=== PATIENT | female | born 1955 | race Caucasian/White ===

== ENCOUNTER 2017-07-12 11:21 | Emergency (ER) | payer BC ==
[2017-07-12] MEDS ORDERED: DIPH/PERTUSS(ACELL)/TETANUS VAC/PF 0.5 ML SYR (>=10YO) IM ONE (11:48)
--- NOTE | 2017-07-12 11:49 | ER Document Report ---
ED Medical Screen (RME) - General Chief Complaint: Head Injury without LOC Stated Complaint: FALL/HEAD INJURY Time Seen by Provider: 07/12/17 11:47 Notes: fell at home, no loc TRAVEL OUTSIDE OF THE [place] IN LAST 30 DAYS: No - Related Data Allergies/Adverse Reactions: No Known Allergies Allergy (Verified 07/12/17 11:24) Past Medical History - Past Medical History Cardiac Medical History: Reports: Hx Hypertension Denies: Hx Coronary Artery Disease, Hx Heart Attack, Hx Pulmonary Embolism Pulmonary Medical History: Reports: Hx Bronchitis, Hx Pneumonia - hospitalized approx 7 years ago Denies: Hx Asthma, Hx COPD, Hx Respiratory Failure, Hx Sleep Apnea, Hx Tuberculosis Neurological Medical History: Denies: Hx Cerebrovascular Accident, Hx Seizures Renal/ Medical History: Denies: Hx End Stage Renal Disease, Hx Kidney Stones, Hx Peritoneal Dialysis Malignancy Medical History: Denies: Hx Leukemia, Hx Lung Cancer GI Medical History: Reports: Hx Gastroesophageal Reflux Disease - OTC Tums prn. 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 Denies: Hx Bowel Surgery, Hx Cholecystectomy, Hx Colostomy, Hx Coronary Artery Bypass Graft, Hx Gastric Bypass Surgery, Hx Herniorrhaphy, Hx Hysterectomy, Hx Mastectomy, Hx Pacemaker, Hx Tonsillectomy, Hx Tubal Ligation - Immunizations Hx Diphtheria, Pertussis, Tetanus Vaccination: Yes
--- NOTE | 2017-07-12 12:39 | RADIOLOGY REPORT (SQ) ---
EXAM DESCRIPTION: CT HEAD WITHOUT COMPLETED DATE/TIME: 07/12/2017 12:29 pm REASON FOR STUDY: fall/pain COMPARISON: None. TECHNIQUE: Axial images acquired through the brain without intravenous contrast. Images reviewed wi th bone, brain and subdural windows. Images stored on PACS. All CT scanners at this facility use dose modulation, iterative reconstruction, and/or weight based d osing when appropriate to reduce radiation dose to as low as reasonably achievable (ALARA). [facility]: Dose Right [facility]: CareDose [facility]: Dose Right [facility]: Teradose 4D [facility]: [employer] RADIATION DOSE: CT Rad equipment meets quality standard of care and radiation dose reduction techniq ues were employed. CTDIvol: 64.6 mGy. DLP: 1163 mGy-cm. mGy. LIMITATIONS: None. FINDINGS: VENTRICLES: Normal size and contour. CEREBRUM: No masses. No hemorrhage. No midline shift. No evidence for acute infarction. Normal gra y/white matter differentiation. No areas of low density in the white matter. CEREBELLUM: No masses. No hemorrhage. No alteration of density. No evidence for acute infarction. EXTRAAXIAL SPACES: No fluid collections. No masses. ORBITS AND GLOBE: No intra- or extraconal masses. Normal contour of globe without masses. CALVARIUM: No fracture. PARANASAL SINUSES: No fluid or mucosal thickening. SOFT TISSUES: Left frontal scalp hematoma. OTHER: No other significant finding. IMPRESSION: NORMAL BRAIN CT WITHOUT CONTRAST. EVIDENCE OF ACUTE STROKE: NO. COMMENT: Quality ID # [id number]: Final reports with documentation of one or more dose reduction techniques (e.g., Automated exposure control, adjustment of the mA and/or kV according to patient size, use of iterative reconstruction technique) TECHNICAL DOCUMENTATION: JOB ID: [id number] [employer]- All Rights Reserved
--- NOTE | 2017-07-12 12:42 | RADIOLOGY REPORT (SQ) ---
EXAM DESCRIPTION: CT FACIAL AREA WITHOUT COMPLETED DATE/TIME: 07/12/2017 12:28 pm REASON FOR STUDY: fall/pain COMPARISON: None. TECHNIQUE: Noncontrasted images through the facial bones and orbits windowed for bone and soft tissu e. Additional coronal and sagittal reconstructed images reviewed. All images stored on PACS. All CT scanners at this facility use dose modulation, iterative reconstruction, and/or weight based d osing when appropriate to reduce radiation dose to as low as reasonably achievable (ALARA). [facility]: Dose Right [facility]: CareDose [facility]: Dose Right [facility]: Teradose 4D [facility]: [employer] RADIATION DOSE: CT Rad equipment meets quality standard of care and radiation dose reduction techniq ues were employed. CTDIvol: 30.4 mGy. DLP: 547 mGy-cm. mGy. LIMITATIONS: None. FINDINGS: FACIAL BONES: No fracture or bone lesion. ORBITS: Intact. No fracture. Symmetric intact globes and retroorbital soft tissues. PARANASAL SINUSES: Clear. No significant mucosal thickening, mass or fluid. No nasal polyps. Maxill elsa sinus outlets are patent. SOFT TISSUES: Left frontal scalp hematoma. INFERIOR BRAIN: See separate report of the same date. OTHER: No other significant finding. IMPRESSION: No fracture. TECHNICAL DOCUMENTATION: JOB ID: [id number] Quality ID # [id number]: Final reports with documentation of one or more dose reduction techniques (e.g., Au tomated exposure control, adjustment of the mA and/or kV according to patient size, use of iterative reconstruction technique) 2010 [employer]- All Rights Reserved
--- NOTE | 2017-07-12 12:46 | RADIOLOGY REPORT (SQ) ---
EXAM DESCRIPTION: CT CERVICAL SPINE WITHOUT COMPLETED DATE/TIME: 07/12/2017 12:28 pm REASON FOR STUDY: fall/pain COMPARISON: None. TECHNIQUE: Axial images acquired through the cervical spine without intravenous contrast. Images re viewed with lung, soft tissue and bone windows. Reconstructed coronal and sagittal MPR images review ed. Images stored on PACS. All CT scanners at this facility use dose modulation, iterative reconstruction, and/or weight based d osing when appropriate to reduce radiation dose to as low as reasonably achievable (ALARA). [facility]: Dose Right [facility]: CareDose [facility]: Dose Right [facility]: Teradose 4D [facility]: Smart [employer] RADIATION DOSE: CT Rad equipment meets quality standard of care and radiation dose reduction techniq ues were employed. CTDIvol: 6.4 mGy. DLP: 128 mGy-cm. mGy. LIMITATIONS: None. FINDINGS: ALIGNMENT: Anatomic. MINERALIZATION: Normal. VERTEBRAL BODIES: No fractures or dislocation. There is a well corticated separate bony ossicle at t he level of marlon inferior aspect of the C4 vertebra which could be related to previous trauma or re present an ununited ossification center. DISCS: There is almost complete loss of the C5-C6 disc space heights with associated osteophytic anibal ing FACETS, LATERAL MASSES, POSTERIOR ELEMENTS: There is a fracture at the base of the C4 spinous process . HARDWARE: None in the spine. VISUALIZED RIBS: No fractures. LUNG APICES AND SOFT TISSUES: No significant or acute findings. OTHER: No other significant finding. IMPRESSION: There is a fracture at the base of the C4 spinous process. No other evidence for acute fracture is seen. Degenerative changes as noted above. Other findings as noted above TECHNICAL DOCUMENTATION: JOB ID: [id number] Quality ID # [id number]: Final reports with documentation of one or more dose reduction techniques (e.g., Au tomated exposure control, adjustment of the mA and/or kV according to patient size, use of iterative reconstruction technique) 2010 [employer]- All Rights Reserved
--- NOTE | 2017-07-12 13:19 | ER Document Report ---
HPI - HPI Pain Level: 4 Notes: Patient is a 61-year-old female with a history of osteoarthritis, hypertension, and tobacco abuse who presents to the ED complaining of facial pain and neck pain status post fall prior to arrival. Patient states that she was carrying her dog outside when she tripped and hit her face off of the cement. Patient states that she did not lose consciousness nor did she have any nausea/ vomiting. Patient states that aside from the pain she feels well. Vomiting patient has been drinking fluids without any difficulties. Patient was placed in a soft collar at triage. She denies any drug allergies or other significant past medical history. She is not on any blood thinners. Denies any fever, changes in vision/speech/mentation/hearing, URI, sore throat, chest pain, palpitations, syncope, cough, shortness of breath, wheeze, dyspnea, abdominal pain, nausea/vomiting/diarrhea, urinary retention, dysuria, hematuria, loss of control of bowel or bladder, numbness/tingling, saddle anesthesia, muscle paralysis/weakness, or rash. - ROS Systems Reviewed and Negative: Yes All other systems reviewed and negative - REPRODUCTIVE Reproductive: DENIES: : - DERM Skin Color: Normal Past Medical History - Social History Smoking Status: Current Every Day Smoker Frequency of alcohol use: Heavy Drug Abuse: None Family History: Reviewed & Not Pertinent Patient has suicidal ideation: No Patient has homicidal ideation: No - Past Medical History Cardiac Medical History: Reports: Hx Hypertension Denies: Hx Coronary Artery Disease, Hx Heart Attack, Hx Pulmonary Embolism Pulmonary Medical History: Reports: Hx Bronchitis, Hx Pneumonia - hospitalized approx 7 years ago Denies: Hx Asthma, Hx COPD, Hx Respiratory Failure, Hx Sleep Apnea, Hx Tuberculosis Neurological Medical History: Denies: Hx Cerebrovascular Accident, Hx Seizures Renal/ Medical History: Denies: Hx End Stage Renal Disease, Hx Kidney Stones, Hx Peritoneal Dialysis Malignancy Medical History: Denies: Hx Leukemia, Hx Lung Cancer GI Medical History: Reports: Hx Gastroesophageal Reflux Disease - OTC Tums prn. 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 Denies: Hx Bowel Surgery, Hx Cholecystectomy, Hx Colostomy, Hx Coronary Artery Bypass Graft, Hx Gastric Bypass Surgery, Hx Herniorrhaphy, Hx Hysterectomy, Hx Mastectomy, Hx Pacemaker, Hx Tonsillectomy, Hx Tubal Ligation - Immunizations Hx Diphtheria, Pertussis, Tetanus Vaccination: Yes Vertical Provider Document - CONSTITUTIONAL Agree With Documented VS: Yes Notes: PHYSICAL EXAMINATION: GENERAL: Well-appearing, well-nourished and in no acute distress. A&Ox4. Answers questions appropriately. HEAD: + swelling and ecchymosis w/o bogginess to the left forehead. + 0.5 linear, superficial, lac to the bridge of the nose. + abrasion left nostril base. + abrasion to the mid forehead. + [id number] laceration to the left forehead. + tenderness to the left forehead. No other cranial or facial tenderness. EYES: Pupils equal round and reactive to light, extraocular movements intact, sclera anicteric, conjunctiva are normal. No raccoon eyes/entrapment. No nystagmus. ENT: EAC clear b/l. TM's intact b/l without erythema, fluid, or perforation. Nares patent and without discharge. oropharynx clear without exudates. No tonsilar hypertrophy or erythema. Moist mucous membranes. No sinus tenderness. No hemotympanum/CSF discharge. NECK: LROM. + tenderness to the mid cervical midline spine. NEXUS positive due to midline tenderness. Chest: No flail chest. equal rise/fall. Non-tender LUNGS: Breath sounds clear to auscultation bilaterally and equal. No wheezes rales or rhonchi. HEART: Regular rate and rhythm without murmurs, rubs, gallops. ABDOMEN: Soft, nontender, nondistended abdomen. No guarding, no rebound. No masses appreciated. Normal bowel sounds present. No CVA tenderness bilaterally. No ecchymosis. Musculoskeletal: UE's b/l: FROM to passive/active. Strength 5+/5. No focal deficits noted. No bony tenderness of extremities. N/V intact distal. Rt LE: LROM at the hip only (prev CHELSEY), Strength 4+/5(not acute per patient, chronic since surgery for CHELSEY). N/V intact distal. Lt LE: FROM, Strength 5+/5. N/V intact distal. Back: FROM to passive/active. Strength 5+/5. No vertebral point tenderness, stepoffs, or deformities. No other bony tenderness or ecchymosis. SLR negative b/l. Extremities: No cyanosis, clubbing, or edema b/l. Peripheral pulses 2+. Capillary refill less than 2 seconds. NEUROLOGICAL: NIH 0. GCS 15. MMSE intact. Cranial nerves grossly intact. Normal speech, normal gait. Normal sensory, motor exams. Reflexes 2+ b/l. JEFF' s negative. Pronator drift negative. Heel/tinoco, finger/nose wnl. PSYCH: Normal mood, normal affect. SKIN: see above head exam. Warm, Dry, normal turgor, no rashes or lesions noted. - INFECTION CONTROL TRAVEL OUTSIDE OF THE [place] IN LAST 30 DAYS: No - RESPIRATORY O2 Sat by Pulse Oximetry: 96 Course - Re-evaluation Re-evalutation: 07/12/17 15:24 I called the transfer center, specialist still in surgery and will call me after. 07/12/17 16:[address] Santos, surgeon [facility], hard collar and f/u appropriate, see below. Patient is an afebrile, well-hydrated, 61-year-old female who presents to the ED with a C4 spinous base fracture status post fall, lacerations to the nose and forehead as well. Vitals are stable. PE is otherwise unremarkable for any focal neurological deficits, neurovascular compromise, obvious tendon/ligament rupture, open fracture. CT scan of the face and the head were unremarkable for any acute pathology. See CT scan of the neck. Patient has been in a soft collar since her arrival, we will switch her to a hard collar. The small laceration to the nose and the larger lac to the forehead were thoroughly cleansed and irrigated. Wound edges were approximated appropriately utilizing one 6-0 chromic simple interrupted suture to the nose and 3 simple interrupted sutures to the forehead, & one horizontal mattress suture. Patient tolerated procedure well without any complications. Wound dressing was placed and wound instructions reviewed. Tetanus was updated today. I did consult with a habilitation training specialist through [facility] who recommended hard collar and f/u in their office as she has no focal neuro deficits. I will send her home with a short course of oxycodone to use as needed. Conservative measures otherwise for symptoms. Recheck with your PCM in 1 week. Keep consult with the neurosurgeon. Return to the ED with any worsening/concerning symptoms otherwise as reviewed discharge. Patient is in agreement. - Vital Signs Vital signs: Temp Pulse Resp BP Pulse Ox 98.1 F 88 18 167/105 H 96 07/12/17 11:35 07/12/17 11:35 07/12/17 11:35 07/12/17 11:35 07/12/17 11:35 Procedures - Laceration/Wound Repair Face Time completed: 14:35 Wound length (cm): 0.5 Wound's Depth, Shape: Superficial, Linear Laceration pre-procedure: Sterile PPE donned, Sterile drapes applied, Other - chlorhexadine. Wound explored: Clean, No foreign body removed Irrigated w/ Saline (mLs): 30 Wound Debrided: Minimal Wound Repaired With: Sutures Suture Size/Type: 6:0, Other - chromic Number of Sutures: 1 Layer Closure?: No Post-procedure wound care: Sterile dressing applied Post-procedure NV exam normal: Yes Complications: No Head Time completed: 14:40 Wound length (cm): 2.5 Wound's Depth, Shape: Superficial, Irregular Laceration pre-procedure: Sterile PPE donned, Sterile drapes applied, Other - chlorhexadine Anesthetic type: 1% Lidocaine Volume Anesthetic (mLs): 6 Wound explored: Clean, No foreign body removed Irrigated w/ Saline (mLs): 60 Wound Debrided: Minimal Wound Repaired With: Sutures Suture Size/Type: 5:0, Nylon Number of Sutures: 5 Layer Closure?: No Post-procedure wound care: Sterile dressing applied Post-procedure NV exam normal: Yes Complications: No Discharge - Discharge Clinical Impression: Fracture of cervical spinous process Qualifiers: Encounter type: initial encounter Fracture type: closed Qualified Code(s): S12.9XXA - Fracture of neck, unspecified, initial encounter Laceration of nose Qualifiers: Encounter type: initial encounter Qualified Code(s): S01.21XA - Laceration without foreign body of nose, initial encounter Contusion of head Qualifiers: Encounter type: initial encounter Contusion of head detail: unspecified part of head Qualified Code(s): S00.93XA - Contusion of unspecified part of head, initial encounter Condition: Stable Disposition: HOME, SELF-CARE Instructions: Antibiotic Ointment Protection ([facility]), Laceration Care ([facility]), Soap Cleansing ([facility]), Tetanus Immunization Given ([facility]) Additional Instructions: Rest, Ice Use hard collar as directed Tylenol/ibuprofen as needed Keep the skin clean F/u with your PCP in 1 week for a recheck Keep/schedule consult with the habilitation training specialist Return to the ED with any worsening symptoms and/or development of fever, headache, changes in speech/vision/hearing/balance/mentation/behavior, chest pain, palpitations, syncope, shortness of breath, trouble breathing, abdominal pain, n/v/d, blood in stool/urine, loss of control of bowel/bladder, urinary retention, muscle weakness/paralysis, saddle anesthesia, numbness/tingling, or other worsening symptoms that are concerning to you. Do not shower or bathe for 24 hours. After 24 hours you may shower but no submersion of the wound under water. Keep the original dressing on the wound for 24 hours unless the drainage soaks through. Change the dressing daily thereafter and keep the knots of the suture material clean from any dried discharge. You may leave the wound open to the air once there is no more discharge. See your PCM in 2-3 days for a recheck. Monitor for any signs of worsening pain or redness, purulent drainage, streaks, and/or fever. Return to the ED if noticing any of the above symptoms or as needed. Take medications as directed. Your sutures will need to be removed in 5 days. Prescriptions: Oxycodone HCl/Acetaminophen [Oxycodone-Acetaminophen 5-325] 1 each PO BID #10 tablet Forms: Elevated Blood Pressure Referrals: MYRNA SANTOS MD [NO LOCAL MD] - Follow up in 3-5 days
[2017-07-12] MEDS ORDERED: OXYCODONE HCL IR 5 MG TABLET PO ONE (13:33)
[2017-07-12] MEDS ORDERED: LIDOCAINE 1% INJ (10 MG/ML) 10 ML MDV INJ ONE (14:49)
[2017-07-12] MEDS ORDERED: LIDOCAINE 1% INJ-PF (10 MG/ML) 30 ML SDV ONE (14:57)
[2017-07-12 17:04] VITALS: BP 157/80
== END 2017-07-12 17:02 | disposition home or self-care (01) ==
LOC: ER 11:21
PROC: 0HQ1XZZ Repair Face Skin, External Approach (ICD-10-PCS; principal; 2017-07-12)
DX: S12.9XXA Fracture of neck, unspecified, initial encounter (principal); S01.21XA Laceration without foreign body of nose, initial encounter; S00.93XA Contusion of unspecified part of head, initial encounter; W01.10XA Fall on same level from slipping, tripping and stumbling with subsequent striking against unspecified object, initial encounter; Y93.K1 Activity, walking an animal; F17.200 Nicotine dependence, unspecified, uncomplicated; I10 Essential (primary) hypertension; Z23 Encounter for immunization
CPT/HCPCS: 99284; 90471; 70450; 70486; 72125; 90715; 12013; L0120; L0172

== ENCOUNTER 2020-05-22 02:46 | Inpatient (IN) | payer BC ==
[2020-05-22] MEDS ORDERED: NORMAL SALINE 1000 ML 1,000 ML IV ONE ×2 (02:55→05:40)
--- NOTE | 2020-05-22 02:55 | ER Document Report ---
ED General - General Chief Complaint: Seizure Stated Complaint: UNRESPONSIVE Primary Care Provider: NATE CARDENAS PA-C [Primary Care Provider] - Follow up as needed TRAVEL OUTSIDE OF THE [place] IN LAST 30 DAYS: No - HPI Context: Chief Complaint: [Syncope and collapse] [This is a 64-year-old female presenting to the emergency room for evaluation after having an episode of syncope with collapse at home. Patient was laying in her recliner and went from lying to sitting to standing and had a syncopal episode. Patient has a history of seizure disorder but has not had any seizure activity for years now and has not been on any antiepileptic medication for some time as well. Patient denies fever, chills, chest pain, shortness of breath, history of PE, loss of sense of taste or loss of sense of smell, history of COVID-19 infection, known exposure to Covid positive persons or persons under investigation for COVID-19, urinary or fecal incontinence. Patient had one episode of nausea and vomiting in route to the hospital while being transported by EMS. Patient states she drinks a couple of times a week but seems evasive when asked how many drinks she has. Patient states "I drink when I feel like it." ] History obtained from [patient] Symptoms began:[Just prior to arrival] Onset: [Sudden] Timing: [Sudden while changing position] Quality: [Patient unable to characterize] Intensity: [0 out of 5 pain] Location: [Generalized] Radiation: [None] [The pain does not migrate to a new location.] Aggravating factors: [none] Relieving factors: [none] [Denies] SOB Positive nausea Positive vomiting [Denies] sweats [Denies] fever [Denies] cough [Denies] calf or leg swelling or pain - Related Data Allergies/Adverse Reactions: No Known Allergies Allergy (Verified 07/12/17 11:24) Past Medical History - General Information source: Patient, Emergency Med Personnel - Social History Smoking Status: Former Smoker Chew tobacco use (# tins/day): No Frequency of alcohol use: Occasional Drug Abuse: None Lives with: Family Family History: Reviewed & Not Pertinent Patient has suicidal ideation: No Patient has homicidal ideation: No - Past Medical History Cardiac Medical History: Reports: Hx Hypertension Denies: Hx Coronary Artery Disease, Hx Heart Attack, Hx Pulmonary Embolism Pulmonary Medical History: Reports: Hx Bronchitis, Hx Pneumonia - hospitalized approx 7 years ago Denies: Hx Asthma, Hx COPD, Hx Respiratory Failure, Hx Sleep Apnea, Hx Tuberculosis Neurological Medical History: Denies: Hx Cerebrovascular Accident, Hx Seizures Renal/ Medical History: Denies: Hx End Stage Renal Disease, Hx Kidney Stones, Hx Peritoneal Dialysis Malignancy Medical History: Denies: Hx Leukemia, Hx Lung Cancer GI Medical History: Reports: Hx Gastroesophageal Reflux Disease - OTC Tums prn. 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 Denies: Hx Bowel Surgery, Hx Cholecystectomy, Hx Colostomy, Hx Coronary Artery Bypass Graft, Hx Gastric Bypass Surgery, Hx Herniorrhaphy, Hx Hysterectomy, Hx Mastectomy, Hx Pacemaker, Hx Tonsillectomy, Hx Tubal Ligation - Immunizations Hx Diphtheria, Pertussis, Tetanus Vaccination: Yes Review of Systems - Review of Systems Notes: Review of systems as below unless otherwise stated in HPI. CONSTITUTIONAL [No] fever, [No] chills. EYES [No] eye pain. ENT [No] URI symptoms, [No] sore throat, [No] ear pain. CARDIOVASCULAR [No] chest pain, [No] palpitations, [No] edema. RESPIRATORY [No] Cough, [No] SOB, [No] wheezing. GASTROINTESTINAL [No] abdominal pain, [No] nausea, [No] Diarrhea, [No] Vomiting, [No] constipation, [No] melena, [No] rectal bleeding. GENITOURINARY [No] dysuria, [No] urinary frequency, [No] hematuria, [No] urinary urgency, [No] vaginal discharge, [No] vaginal bleeding. MUSCULOSKELETAL [No] Back pain. SKIN [No] Rash. NEUROLOGIC [No] Headache, [No] recent seizures, [No] paralysis,[No] parathesias. Positive syncope and collapse ENDOCRINE [No] polyuria. HEMO/LYMPATIC [No] easy brusing PSYCHIATRIC [No] depression. Physical Exam - Vital signs Vitals: Resp BP Pulse Ox 17 185/85 H 92 05/22/20 02:46 05/22/20 02:46 05/22/20 02:46 - Notes Notes: CONSTITUTIONAL [Vital signs reviewed, Patient appears comfortable, Alert and oriented X 3, Normal stature.] HEAD [Atraumatic, Normocephalic.] EYES [Eyes are normal to inspection, No discharge from eyes, Extraocular muscles intact, Sclera are normal, Conjunctiva are normal.] ENT [External ears normal to inspection, Nose examination normal, Mouth normal to inspection.] NECK [Normal ROM, No jugular venous distention, No meningeal signs, ] RESPIRATORY CHEST [Chest is nontender, Breath sounds normal, No respiratory distress.] CARDIOVASCULAR [RRR, No murmurs, Normal S1 S2, No rub, No gallop.] ABDOMEN [Abdomen is nontender, No pulsatile masses, No other masses, Bowel sounds normal, No distension, No peritoneal signs, No hernias.] BACK [There is no CVA Tenderness, There is no tenderness to palpation, Normal inspection.] UPPER EXTREMITY [Inspection normal, No cyanosis, No clubbing, No edema, LOWER EXTREMITY [Inspection normal, No cyanosis, No clubbing, No edema, No calf tenderness, NEURO [No focal motor deficits, No focal sensory deficits, Speech normal.] SKIN [Skin is warm, Skin is dry, Skin is normal color.] PSYCHIATRIC [Flat affect. ] Course - Re-evaluation Re-evalutation: 05/22/20 06:50 Results of ED MSE discussed with patient. Recommendation for admission to correct hyponatremia discussed with patient. Patient is agreeable to this. - Vital Signs Vital signs: Temp Pulse Resp BP Pulse Ox 97.5 F 79 22 H 153/79 H 95 05/22/20 02:47 05/22/20 05:44 05/22/20 05:35 05/22/20 05:44 05/22/20 05:35 - Laboratory Results Result Diagrams: 05/22/20 02:49 05/22/20 02:49 Laboratory Results Interpreted: 05/22/20 05/22/20 05/22/20 02:49 02:49 02:52 MCV 98 H MCH 34.3 H Sodium 122.5 L Chloride 84 L BUN 5 L Creatinine 0.40 L Glucose 171 H POC Glucose 154 H AST 42 H Urine Glucose (UA) Urine Ketones Ur Leukocyte Esterase 05/22/20 04:56 MCV MCH Sodium Chloride BUN Creatinine Glucose POC Glucose AST Urine Glucose (UA) 50 H Urine Ketones 20 H Ur Leukocyte Esterase SMALL H Critical Laboratory Results Reviewed: Yes Attending or Supervising Physician who Reviewed Labs: MICHAEL ANTON IV - Patient sodium of 122.5 is markedly lower than prior sodium levels seen on review of the patient's medical record - Radiology Results Critical Radiology Results Reviewed: No Critical Results Attending or Supervising Physician who Reviewed Radiology: MICHAEL ANTON IV - EKG Interpretation by Me Additional EKG results interpreted by me: 05/22/20 03:01 EKG obtained on 05/22/2020 at 0250 hrs. was interpreted by this MD. Findings:s inus rhythm, rate 93, normal axis, P waves preceding QRS complexes complexes appear narrow, QTC is 453, first-degree AV block is present, QTC is 453, when compared to prior EKG from 08/15/2015 other than first-degree AV block the overall gross morphology of the 2 EKGs appears very similar. Impression: Sinus rhythm with first-degree AV block and nonspecific ST segments - Consults Dr. Curtis Time consulted: 06:22 - Dr. Curtis agreed to admit pt Reason for consultation: 05/22/20 06:22 symptomatic hyponatremia Discharge - Discharge Clinical Impression: Hyponatremia Syncope Qualifiers: Syncope type: unspecified Qualified Code(s): R55 - Syncope and collapse Condition: Stable Disposition: ADMITTED OBSERVATION Admitting Provider: Kirsten (Hospitalist) Unit Admitted: IMCU Referrals: NATE CARDENAS PA-C [Primary Care Provider] - Follow up as needed
[2020-05-22 03:32] LABS: ABSOLUTE BASOPHILS # (AUTO) 0.1 10^3/uL (0.0-0.2); ABSOLUTE EOSINOPHILS # (AUTO) 0.1 10^3/uL (0.0-0.6); ABSOLUTE LYMPHOCYTES (AUTO) 1.4 10^3/uL (0.5-4.7); ABSOLUTE MONOCYTES (AUTO) 0.6 10^3/uL (0.1-1.4); ABSOLUTE NEUT (AUTO) 4.9 10^3/uL (1.7-8.2); BASOPHILS % (AUTO) 1.1 % (0-2); EOSINOPHILS % (AUTO) 1.4 % (0-6); HEMATOCRIT 43.8 % (36.0-47.0); HEMOGLOBIN 15.3 g/dL (12.0-15.5); LYMPHOCYTES % (AUTO) 20.1 % (13-45); MEAN CORPUSCULAR HEMOGLOBIN 34.3 pg (27.0-33.4); MEAN CORPUSCULAR HGB CONC 34.9 g/dL (32.0-36.0); MEAN CORPUSCULAR VOLUME 98 fl (80-97); PLATELET COUNT 346 10^3/uL (150-450); RED BLOOD COUNT 4.45 10^6/uL (3.72-5.28); RED CELL DISTRIBUTION WIDTH 12.8 % (11.5-14.0); SEGMENTED NEUTROPHILS % (AUTO) 68.4 % (42-78); TOTAL CELLS COUNTED % (AUTO) 100 %; WHITE BLOOD COUNT 7.2 10^3/uL (4.0-10.5)
[2020-05-22 03:36] LABS: ALBUMIN 4.6 g/dL (3.5-5.0); ALKALINE PHOSPHATASE 109 U/L (38-126); ANION GAP 11 (5-19); ASPARTATE AMINO TRANSFERASE 42 U/L (14-36); BILIRUBIN,DIRECT 0.1 mg/dL (0.0-0.4); BLOOD UREA NITROGEN 5 mg/dL (7-20); CALCIUM 9.8 mg/dL (8.4-10.2); CARBON DIOXIDE 28 mmol/L (22-30); CHLORIDE 84 mmol/L (98-107); GLUCOSE 171 mg/dL (75-110); POTASSIUM 4.8 mmol/L (3.6-5.0); TOTAL PROTEIN 7.7 g/dL (6.3-8.2)
[2020-05-22 03:40] LABS: ALCOHOL < 10 mg/dL (NONE DETECTED)
[2020-05-22 05:31] LABS: APPEARANCE,URINE CLEAR; BILIRUBIN,URINE NEGATIVE (NEGATIVE); COLOR,URINE YELLOW; GLUCOSE, URINE 50 mg/dL (NEGATIVE); KETONES,URINE 20 mg/dL (NEGATIVE); LEUKOCYTE ESTERASE,URINE SMALL (NEGATIVE); NITRITE,URINE NEGATIVE (NEGATIVE); PROTEIN,URINE NEGATIVE (NEGATIVE); URINE SPECIFIC GRAVITY 1.011; UROBILINOGEN,URINE NEGATIVE mg/dL (<2.0)
--- NOTE | 2020-05-22 05:39 | RADIOLOGY REPORT (SQ) ---
EXAM DESCRIPTION: CT HEAD WITHOUT IV CONTRAST COMPLETED DATE/TME: 05/22/2020 04:51 CLINICAL HISTORY: 64 years, Female, Status post fall COMPARISON: 07/12/2017 CT TECHNIQUE: 217 Images stored on PACS. All CT scanners at this facility use dose modulation, iterative reconstruction, and/or weight based dosing when appropriate to reduce radiation dose to as low as reasonably achievable (ALARA). [facility]: Dose Right [facility]: CareDose [facility]: Dose Right [facility]: Teradose 4D [facility]: [employer] LIMITATIONS: None. FINDINGS: The globes are intact. The paranasal sinuses and mastoid air cells are well aerated. No displaced or depressed skull fracture. No acute intracranial hemorrhage. CT is limited for evaluation of acute infarct. No CT evidence for large or territorial acute infarct. No mass. No midline shift IMPRESSION: No acute intracranial abnormality TECHNICAL DOCUMENTATION: Quality ID # 436: Final reports with documentation of one or more dose reduction techniques (e.g., Automated exposure control, adjustment of the mA and/or kV according to patient size, use of iterative reconstruction technique) copyright 2011 [employer]- All Rights Reserved
[2020-05-22 05:47] LABS: URINE AMPHETAMINES SCREEN NEGATIVE; URINE BARBITURATES SCREEN NEGATIVE; URINE BENZODIAZEPINES SCREEN NEGATIVE; URINE COCAINE SCREEN NEGATIVE; URINE MARIJUANA (THC) SCREEN NEGATIVE; URINE METHADONE SCREEN NEGATIVE; URINE PHENCYCLIDINE SCREEN NEGATIVE
--- NOTE | 2020-05-22 05:48 | RADIOLOGY REPORT (SQ) ---
EXAM DESCRIPTION: XR CHEST 1 VIEW COMPLETED DATE/TME: 05/22/2020 04:54 CLINICAL HISTORY: 64 years, Female, Status post fall COMPARISON: 08/15/2015 chest NUMBER OF VIEWS: 1 TECHNIQUE: Portable chest LIMITATIONS: None. FINDINGS: Heart size is normal. Osteopenia. COPD. Atheromatous change thoracic aorta. No pneumothorax. Lungs are clear IMPRESSION: COPD. Lungs are clear copyright 2011 [facility]- All Rights Reserved
--- NOTE | 2020-05-22 05:49 | RADIOLOGY REPORT (SQ) ---
EXAM: CT cervical spine without intravenous contrast CLINICAL DATA: 64 years Female Status post fall TECHNICAL DATA: Multiple high-resolution thin axial CT images were performed through the cervical spine followed by sagittal and coronal reconstructed images. The CT study is performed according to ALARA (as low as reasonably achievable) or ALARA/IMAGE GENTLY, with automatic adjustment of mA and/or kV according to patient size. Performed on: 05/22/2020 at 4:43 AM COMPARISONS: CT cervical spine performed on 07/12/2017. FINDINGS: The cervical vertebrae are normal in height. There is normal alignment of the vertebrae. There is moderate stable disc space narrowing C5-C6. Bone mineralization is normal. There is mild degenerative spurring of the cervical spine at C4, C5 and C6. The previously identified C4 fractures are healed. The atlanto-axial articulation is preserved and the odontoid process is intact. There is normal alignment of the facet joints on the parasagittal images. There are degenerative changes of the facet joints. There is no evidence of acute fracture or subluxation. There is no significant canal stenosis. There is bilateral C5-C6 neural foraminal stenosis secondary to degenerative disc disease and degenerative joint disease. The paravertebral and paraspinal soft tissues are unremarkable. The lung apices reveal centrilobular emphysematous changes with chronic pleural parenchymal scarring in the left lung apex. IMPRESSION: 1. No evidence of acute osseous injury involving the cervical spine. 2. Degenerative changes of the cervical spine at C5-C6 as described above, similar when compared to the prior study. 3. Old healed fracture of the C4 vertebra and spinous process. 4. Centrilobular emphysematous changes in the lung apices and chronic pleural parenchymal scarring in the left lung apex
[2020-05-22] MEDS ORDERED: ACETAMINOPHEN 325 MG TABLET PO PRN (07:04)
[2020-05-22] MEDS ORDERED: ONDANSETRON HCL INJ/PF 4 MG/2 ML SDV IV PRN (07:04)
[2020-05-22] MEDS ORDERED: IPRATROPIUM/ALBUTEROL 0.5-2.5 MG/3 ML AMPUL NEB PRN (07:04)
[2020-05-22] MEDS ORDERED: PROMETHAZINE HCL INJ 25 MG/1 ML VIAL IV PRN (07:04)
--- NOTE | 2020-05-22 07:04 | PDOC H&P ---
History of Present Illness Admission Date/PCP: NATE CARDENAS PA-C History of Present Illness: KAIA APPLE is a 64 year old female past medical history of untreated hypertension, EtOH abuse, brought to ED after witnessed tonic-clonic seizure by family. Patient son who is present at the room stating that patient was sleeping and when she woke up and was trying to get off the bed she suddenly collapsed and had tonic-clonic seizure which lasted about 2 to 3 minutes witnessed by his daughter who was in the room, after seizure patient was was unresponsive about 20 to 30 minutes, EMS and initial impression was that patient may have had a stroke, after EMS arrival patient came back to but was noted to be confused till arrival to the hospital. On my encounter patient is resting in bed comfortably awake and alert x3, stating that she does not recall anything that had happened prior to coming to the hospital, stating that she does not have any history of seizure disorder how ever 3 years ago she had one episode of seizure for which she came to [facility] and was discharged home without any medications, she is also saying that she has history of hypertension but does not take any medication. As per son who is present in the room patient is a heavy drinker and drinks multiple bottles of beer daily along with wine, as per son patient does not eat or drink much except for excessive drinking. Patient is complaining of mild chest congestion otherwise denies any headache, vision changes, weakness, numbness, tingling, headache, nausea, fever, chills, diarrhea, constipation or any urinary symptoms. Past Medical History Cardiac Medical History: Reports: Hypertension Denies: Coronary Artery Disease, Myocardial Infarction, Pulmonary Embolism Pulmonary Medical History: Reports: Bronchitis, Pneumonia - hospitalized approx 7 years ago Denies: Asthma, Chronic Obstructive Pulmonary Disease (COPD), Respiratory Failure, Sleep Apnea, Tuberculosis Neurological Medical History: Denies: Seizures Renal/ Medical History: Denies: End Stage Renal Disease Malignancy Medical History: Denies: Leukemia, Lung Cancer GI Medical History: Reports: Gastroesophageal Reflux Disease - OTC Tums prn Denies: Crohn's Disease, Hiatal Hernia Musculoskeltal Medical History: Reports: Arthritis Denies: Fibromyalgia Psychiatric Medical History: Denies: Bipolar Disorder, Depression, Post Traumatic Stress Disorder Hematology: Reports: Anemia - with only Denies: Hemophilia, Sickle Cell Disease Infectious Medical History: Denies: HIV Past Surgical History Past Surgical History: Reports: Appendectomy - at age 46 years old, Section - 1981, Orthopedic Surgery - Right hip fx nailed on 01-19-11, 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 Denies: Amputation, Cholecystectomy, Colostomy, Coronary Artery Bypass Graft, Gastric Bypass Surgery, Herniorrhaphy, Hysterectomy, Mastectomy, Pacemaker, Tonsillectomy, Tubal Ligation Social History Lives with: Family Smoking Status: Former Smoker Electronic Cigarette use?: No Hx Recreational Drug Use: No Hx Prescription Drug Abuse: No Family History Family History: Reviewed & Not Pertinent Parental Family History Reviewed: Yes Children Family History Reviewed: Yes Sibling(s) Family History Reviewed.: Yes Medication/Allergy Home Medications: Aspirin [Ecotrin 81 mg EC Tablet] 81 mg PO DAILY 08/16/11 Baclofen [Baclofen 10 mg Tablet] 10 mg PO TID PRN 03/13/14 Gabapentin [Neurontin 400 mg Capsule] 400 mg PO QID 03/13/14 Meloxicam [Mobic 7.5 Mg Tablet] 7.5 mg PO DAILY PRN 03/13/14 Phenytoin Sodium Extended [Dilantin 100 mg Capsule.er] 300 mg PO QHS #30 capsule 08/16/15 Oxycodone HCl/Acetaminophen [Oxycodone-Acetaminophen 5-325] 1 each PO BID #10 tablet 07/12/17 Allergies/Adverse Reactions: No Known Allergies Allergy (Verified 07/12/17 11:24) Review of Systems Review of Systems: as per hpi Physical Exam Vital Signs: Temp Pulse Resp BP Pulse Ox 97.5 F 79 22 H 153/79 H 95 05/22/20 02:47 05/22/20 05:44 05/22/20 05:35 05/22/20 05:44 05/22/20 05:35 Intake & Output 05/20/20 05/21/20 05/22/20 06:59 06:59 06:59 Intake Total 1000 Balance 1000 Weight 49.3 kg General appearance: PRESENT: no acute distress, well-developed, well-nourished Head exam: PRESENT: atraumatic, normocephalic Respiratory exam: PRESENT: clear to auscultation nisa. ABSENT: rales, rhonchi, wheezes Cardiovascular exam: PRESENT: RRR. ABSENT: diastolic murmur, rubs, systolic murmur GI/Abdominal exam: PRESENT: normal bowel sounds, soft. ABSENT: distended, guarding, mass, organolmegaly, rebound, tenderness Extremities exam: PRESENT: full ROM. ABSENT: calf tenderness, clubbing, pedal edema Neurological exam: PRESENT: alert, awake, oriented to person, oriented to place, oriented to time, oriented to situation, CN II-XII grossly intact. ABSENT: motor sensory deficit Results Laboratory Results: 05/22/20 02:49 05/22/20 02:49 05/22/20 05/22/20 05/22/20 02:49 02:49 04:56 WBC 7.2 RBC 4.45 Hgb 15.3 Hct 43.8 MCV 98 H MCH 34.3 H MCHC 34.9 RDW 12.8 Plt Count 346 Seg Neutrophils % 68.4 Sodium 122.5 L Potassium 4.8 Chloride 84 L Carbon Dioxide 28 Anion Gap 11 BUN 5 L Creatinine 0.40 L Est GFR ( Amer) > 60 Glucose 171 H Calcium 9.8 Total Bilirubin 1.0 AST 42 H Alkaline Phosphatase 109 Total Protein 7.7 Albumin 4.6 Urine Color YELLOW Urine Appearance CLEAR Urine pH 7.0 Ur Specific Salol 1.011 Urine Protein NEGATIVE Urine Glucose (UA) 50 H Urine Ketones 20 H Urine Blood NEGATIVE Urine Nitrite NEGATIVE Ur Leukocyte Esterase SMALL H Urine WBC (Auto) 8 Urine RBC (Auto) 0 05/22/20 02:49 Troponin I 0.048 Impressions: Cervical Spine CT 05/22/20 02:57 IMPRESSION: 1. No evidence of acute osseous injury involving the cervical spine. 2. Degenerative changes of the cervical spine at C5-C6 as described above, similar when compared to the prior study. 3. Old healed fracture of the C4 vertebra and spinous process. 4. Centrilobular emphysematous changes in the lung apices and chronic pleural parenchymal scarring in the left lung apex Chest X-Ray 05/22/20 02:57 IMPRESSION: COPD. Lungs are clear copyright 2010 [employer] All Rights Reserved Head CT 05/22/20 02:57 IMPRESSION: No acute intracranial abnormality TECHNICAL DOCUMENTATION: Quality ID # 436: Final reports with documentation of one or more dose reduction techniques (e.g., Automated exposure control, adjustment of the mA and/or kV according to patient size, use of iterative reconstruction technique) copyright 2010 [employer] All Rights Reserved Assessment and Plan - Diagnosis (1) Seizure Is this a current diagnosis for this admission?: Yes Plan: Likely due to EtOH induced hyponatremia. Patient denies any history of seizure however states that she had one episode of seizure 3 years ago and she is not taking any antiseizure medications. Patient has history of heavy alcohol abuse and drinks multiple beer bottles with wine daily. CT head negative for any acute abnormalities. Chest x-ray negative for any acute abnormalities. Admit to IMCU, fall, seizure and aspiration precautions, Keppra 1000 mg p.o. twice daily, treat underlying hyponatremia. (2) Hyponatremia Is this a current diagnosis for this admission?: Yes Plan: Likely beer proteinemia. History of excessive EtOH abuse. Admit to IMCU, fluid restriction, BMP every 6 hours. If patient does not self-correct or hyponatremia worsened consider hypertonic saline. (3) Elevated troponin Is this a current diagnosis for this admission?: Yes Plan: Denies any anginal symptoms or any history of CAD. Mildly elevated troponin with no acute EKG changes. History of unrelated treated hypertension. Admit to telemetry, trend troponins, antiplatelets, statins, 2D echo. Consult cardiology if indicated. (4) Hypertension Qualifiers: Hypertension type: essential hypertension Qualified Code(s): I10 - Essential (primary) hypertension Is this a current diagnosis for this admission?: Yes Plan: History of untreated hypertension. Start on beta-blockers and calcium channel blockers. Avoid diuretics to prevent electrolyte abnormalities. (5) ETOH abuse Is this a current diagnosis for this admission?: Yes Plan: Patient has history of heavy alcohol abuse and drinks multiple beer bottles with wine daily. Patient has had a seizure episode 3 years ago which may have been also due to EtOH abuse. Admit to IMCU, seizure, fall and aspiration precautions, DT protocol. - Time Anticipated Discharge Disposition: Home with Home Health Anticipated Discharge Timeframe: within 36 hours
[2020-05-22] MEDS ORDERED: LORAZEPAM INJ 2 MG/1 ML VIAL IV PRN (07:09)
[2020-05-22] MEDS ORDERED: DIAZEPAM INJ 10 MG/2 ML DISP.SYRIN IV PRN (07:09)
[2020-05-22] MEDS ORDERED: NORMAL SALINE 1000 ML 1,000 ML with POTASSIUM CHLORIDE 20 MEQ, MAGNESIUM SULFATE 8 MEQ,... IV ONE ×5 (07:09)
[2020-05-22] MEDS ORDERED: ASPIRIN 325 MG TABLET PO ONE (07:45)
--- NOTE | 2020-05-22 09:52 | Progress Note ---
Provider Note Provider Note: 09:41: I was contacted by ED nurse regarding climbing troponin value 0.048 -> 0.108. Repeat EKG was ordered. Dr. Rios, cardiology was consulted. Discussed case with Dr. Rios, initial EKG notable for T wave changes, the second EKG actually improved. Patient presented without ischemic symptoms including chest pain, palpitations, numbness or tingling, neck or jaw pain, shoulder or arm pain, shortness of breath, or diaphoresis. Continues to deny ischemic symptoms. She did note single episode of nausea and vomiting last night, denies nausea or vomiting since. Additionally notes that she feels as though she has some mucus in her chest this is relatively normal for her and has been going on for quite some time. Her only complaint at this time is that she wants to sleep but is having difficulty sleeping and feels "a little anxious." Again denies history of coronary artery disease, does note history of hypertension not on home medications. Additionally confirms history of chronic alcohol use, though denies history of alcohol withdrawals in the past. On physical exam patient is sitting upright in bed. She is in no acute distress. She is alert and oriented x4. O2 sats within normal limits on room air. Blood pressure 130s over 90s. Heart rate 80s. Regular rate rhythm without murmur or gallops. Lungs clear to auscultation bilaterally without wheezes. Skin warm, dry, without rash. Patient does appear anxious. Aspirin and beta-giuseppe therapy have already been initiated. Will hold anticoagulation prophylaxis, as per cardiology recommendations. 2D echo has been ordered and is pending. In the event that there is decreased ejection fraction or wall abnormalities on echo, will likely have to transfer patient. Repeat troponin is pending. She is on telemetry. Patient provided strict instructions to tell nursing staff if she experiences any ischemic symptoms. Plan to follow patient closely.
--- NOTE | 2020-05-22 09:52 | EKG REPORT ---
SEVERITY:- NORMAL ECG - SINUS RHYTHM : Confirmed by: Jose Ramon Jones MD 22-May-2020 09:51:24
--- NOTE | 2020-05-22 09:54 | EKG REPORT ---
SEVERITY:- ABNORMAL ECG - SINUS RHYTHM FIRST DEGREE AV BLOCK NONSPECIFIC ANTEROLATERAL ST-T CHANGES : Confirmed by: Jose Ramon Jones MD 22-May-2020 09:53:25
[2020-05-22] MEDS ORDERED: LISINOPRIL 10 MG TABLET PO SCH (10:00)
[2020-05-22] MEDS: FAMOTIDINE 20 MG TABLET PO SCH ×2 (10:10→21:37)
[2020-05-22] MEDS: LEVETIRACETAM 1000 MG/NACL-ISO 1,000 MG/100 ML RTUPB IV SCH ×2 (10:10→22:47)
[2020-05-22] MEDS: CARVEDILOL 12.5 MG TABLET PO SCH ×2 (10:10→21:37)
[2020-05-22] MEDS: DOCUSATE SODIUM 100 MG/10 ML UDC PO SCH (10:10)
[2020-05-22] MEDS ORDERED: HEPARIN SOD (PORCINE) 5,000 UNIT/ML 1 ML VIAL SUBCUT SCH (14:00)
[2020-05-22 14:22] LABS: ANION GAP 5 (5-19); BLOOD UREA NITROGEN 5 mg/dL (7-20); CALCIUM 9.1 mg/dL (8.4-10.2); CARBON DIOXIDE 28 mmol/L (22-30); CHLORIDE 93 mmol/L (98-107); GLUCOSE 127 mg/dL (75-110); POTASSIUM 4.5 mmol/L (3.6-5.0)
[2020-05-22] MEDS: HEPARIN SOD (PORCINE) 5,000 UNIT/ML 1 ML VIAL SUBCUT SCH ×2 (17:03→21:38)
--- NOTE | 2020-05-22 18:02 | XCELERA REPORT ---
[address] [address] Transthoracic Echocardiogram Report Name: KAIA APPLE Age: 64 yrs Gender: Female : 1955 Patient Status: Inpatient Patient Location: [address] [place] [address] Study Date: 05/22/2020 04:25 PM Height: 67 in Weight: 108 lb BSA: 1.6 m2 Procedure: A complete two-dimensional transthoracic echocardiogram was performed (2D, M-mode, spectral and color flow Doppler). The study was technically adequate with some images being suboptimal in quality. Reason For Study: elevated trop Ordering Physician: KEYA HOFFMAN Performed By: Madison Ochoa Interpretation Summary There is mild concentric left ventricular hypertrophy. Left ventricular systolic function is normal. The Ejection Fraction estimate is 65-70%. Doppler measurements suggest impaired left ventricular relaxation, which is associated with grade I/IV or mild diastolic dysfunction. No regional wall motion abnormalities noted. Mild TR. Pulmonic valve was not well visualized. Mild pulmonary hypertension with pressures between 45 and 50 mmHg. Trace anterior pericardial effusion. No prior studies for comparison. MMode/2D Measurements & Calculations RVDd: 2.3 cm LVIDd: 3.6 cm FS: 34.0 % Ao root diam: 2.8 cm IVSd: 1.2 cm LVIDs: 2.4 cm EDV(Teich): 54.8 ml Ao root area: 6.3 cm2 LVPWd: 1.00 cm ESV(Teich): 19.8 ml EF(Teich): 63.9 % Doppler Measurements & Calculations MV E max flor: MV dec slope: Ao V2 max: LV V1 max P.4 cm/sec 374.7 cm/sec2 122.9 cm/sec 3.2 mmHg MV A max flor: MV dec time: 0.23 secAo max PG: LV V1 mean P.0 cm/sec 6.0 mmHg 1.6 mmHg MV E/A: 0.96 Ao V2 mean: LV V1 max: 95.4 cm/sec 89.3 cm/sec Ao mean PG: LV V1 mean: 3.9 mmHg 61.5 cm/sec Ao V2 VTI: 35.6 cm LV V1 VTI: 20.1 cm PA V2 max: TR max flor: 80.2 cm/sec 317.5 cm/sec PA max P.6 mmHg TR max P.3 mmHg Left Ventricle There is mild concentric left ventricular hypertrophy. Left ventricular systolic function is normal. The Ejection Fraction estimate is 65-70%. Doppler measurements suggest impaired left ventricular relaxation, which is associated with grade I/IV or mild diastolic dysfunction. No regional wall motion abnormalities noted. Right Ventricle The right ventricle is normal in size, thickness and function. The right ventricular systolic function is normal. Atria The right atrium is normal. The left atrial size is normal. There is no Doppler evidence for an interatrial shunt. Mitral Valve The mitral valve leaflets are sclerotic, but show no functional abnormalities. There is no mitral regurgitation noted. Aortic Valve The aortic valve is sclerotic, but shows no functional abnormality. No aortic regurgitation is present. Tricuspid Valve The tricuspid valve is not well visualized secondary to technical limitations. There is a mild amount of tricuspid regurgitation. There is mild pulmonary hypertension by echo. Right ventricular systolic pressure is estimated to be elevated at 40-50mmHg. Pulmonic Valve The pulmonic valve is not well visualized. Great Vessels The inferior vena cava appeared normal and decreased > 50% with respiration (RAP 5-10 mmHg). Effusions Trace anterior pericardial effusion. : KEYA HOFFMAN Antonio
[2020-05-22 21:26] LABS: BLOOD UREA NITROGEN 7 mg/dL (7-20); CALCIUM 8.8 mg/dL (8.4-10.2); CARBON DIOXIDE 27 mmol/L (22-30); GLUCOSE 98 mg/dL (75-110); POTASSIUM 4.4 mmol/L (3.6-5.0)
[2020-05-22 21:32] LABS: CHLORIDE 98 mmol/L (98-107)
[2020-05-22 21:37] LABS: ANION GAP 3 (5-19)
[2020-05-22] MEDS: ATORVASTATIN CALCIUM 40 MG TABLET PO SCH (21:37)
[2020-05-23 01:32] LABS: BLOOD UREA NITROGEN 5 mg/dL (7-20); CALCIUM 8.7 mg/dL (8.4-10.2); CARBON DIOXIDE 27 mmol/L (22-30); CHLORIDE 102 mmol/L (98-107); GLUCOSE 88 mg/dL (75-110); POTASSIUM 4.1 mmol/L (3.6-5.0)
[2020-05-23 01:39] LABS: ANION GAP 3 (5-19)
[2020-05-23] MEDS: HEPARIN SOD (PORCINE) 5,000 UNIT/ML 1 ML VIAL SUBCUT SCH ×3 (06:01→21:29)
[2020-05-23 07:29] LABS: ABSOLUTE BASOPHILS # (AUTO) 0.1 10^3/uL (0.0-0.2); ABSOLUTE EOSINOPHILS # (AUTO) 0.1 10^3/uL (0.0-0.6); ABSOLUTE LYMPHOCYTES (AUTO) 1.2 10^3/uL (0.5-4.7); ABSOLUTE MONOCYTES (AUTO) 0.5 10^3/uL (0.1-1.4); ABSOLUTE NEUT (AUTO) 3.2 10^3/uL (1.7-8.2); BASOPHILS % (AUTO) 1.3 % (0-2); EOSINOPHILS % (AUTO) 1.4 % (0-6); HEMATOCRIT 35.1 % (36.0-47.0); LYMPHOCYTES % (AUTO) 24.6 % (13-45); MEAN CORPUSCULAR HEMOGLOBIN 33.5 pg (27.0-33.4); MEAN CORPUSCULAR HGB CONC 34.2 g/dL (32.0-36.0); MEAN CORPUSCULAR VOLUME 98 fl (80-97); MONOCYTES % (AUTO) 10.6 % (3-13); PLATELET COUNT 227 10^3/uL (150-450); RED BLOOD COUNT 3.58 10^6/uL (3.72-5.28); RED CELL DISTRIBUTION WIDTH 12.9 % (11.5-14.0); SEGMENTED NEUTROPHILS % (AUTO) 62.1 % (42-78); TOTAL CELLS COUNTED % (AUTO) 100 %; WHITE BLOOD COUNT 5.1 10^3/uL (4.0-10.5)
[2020-05-23 07:40] LABS: ANION GAP 6 (5-19); BLOOD UREA NITROGEN 6 mg/dL (7-20); CARBON DIOXIDE 27 mmol/L (22-30); CHLORIDE 99 mmol/L (98-107); GLUCOSE 89 mg/dL (75-110); PHOSPHORUS 3.6 mg/dL (2.5-4.5); POTASSIUM 4.2 mmol/L (3.6-5.0)
[2020-05-23] MEDS ORDERED: INFLUENZA QUAD (6MOS+) 2020-21 VAC 0.5 ML SYR IM ONE (08:00)
--- NOTE | 2020-05-23 08:02 | PDOC CONSULTATION ---
Consultation Consult Date: 05/23/20 Attending physician:: KEYA HOFFMAN Provider Consulted: BRIA GALVAN Consult reason:: Abnormal troponin History of Present Illness Admission Date/PCP: 05/22/20 07:04 NATE CARDENAS PA-C History of Present Illness: KAIA APPLE is a 64 year old female with history of tobacco use, untreated hypertension, alcohol abuse, not known to have any cardiac history who is consulted to our service for evaluation of elevated troponin. The patient had been in her usual state of health until the day of admission when, upon standing from a supine position, she had a syncopal event and was noted to have jerking movements which her family thought it was a seizure therefore she was brought to the emergency room. Per her admission note, she was apparently unresponsive anywhere from 20 to 30 minutes however upon arrival to the emergency room she was awake although confused. In our emergency room she was noted to have a systolic blood pressure of 185 mmHg as well as severe hyponatremia and another laboratory abnormalities. This morning she is fully awake and without cardiovascular complaints. She denies prior history of coronary artery disease or any other cardiac history and states that she was diagnosed with hypertension just recently. She quit tobacco approximately 10 days ago. Her telemetry shows normal sinus rhythm with PVCs and artifact. Physical exam on 05/23/2020: GENERAL: Looks older than stated age. Pleasant and conversational. Oriented x3 with normal mood. Not in acute distress. Well groomed and well developed. HEENT: Normocephalic, atraumatic. Pupils equal. Sclerae anicteric. Oropharynx moist. NECK: No JVD. No carotid bruits. LUNGS: Severely decreased breath sounds bilaterally with faint inspiratory wheezing in all fierro. Normal respiratory effort without the use of accessory muscles or intercostal retractions. CARDIOVASCULAR: Regular rate and rhythm, normal S1 and S2 without murmurs, rubs, or gallops. PMI not displaced. ABDOMEN: No masses or tenderness to palpation. No bruit. No splenomegaly or hepatomegaly. No abdominal aorta bruit noted. EXTREMITIES: No edema, no cyanosis, no clubbing. +2 pulses femoral and pedal pulses bilaterally. SKIN: No lesions or rashes. MUSCULOSKELETAL: No chest tenderness to palpation. NEUROLOGIC: Nonfocal. No gross sensory or motor deficits bilateral upper or lower extremities. Cardiac studies: Echocardiogram on 05/22/2020: -Mild concentric LVH. -EF greater than 65%. -No gross regional wall motion abnormalities. -Grade 1 diastolic dysfunction. -Trace, anterior pericardial effusion. -No prior studies for comparison. Past Medical History Cardiac Medical History: Reports: Hypertension Denies: Coronary Artery Disease, Myocardial Infarction, Pulmonary Embolism Pulmonary Medical History: Reports: Bronchitis, Pneumonia - hospitalized approx 7 years ago Denies: Asthma, Chronic Obstructive Pulmonary Disease (COPD), Respiratory Failure, Sleep Apnea, Tuberculosis Neurological Medical History: Denies: Seizures Renal/ Medical History: Denies: End Stage Renal Disease Malignancy Medical History: Denies: Leukemia, Lung Cancer GI Medical History: Reports: Gastroesophageal Reflux Disease - OTC Tums prn Denies: Crohn's Disease, Hiatal Hernia Musculoskeltal Medical History: Reports: Arthritis Denies: Fibromyalgia Psychiatric Medical History: Denies: Bipolar Disorder, Depression, Post Traumatic Stress Disorder Hematology: Reports: Anemia - with only Denies: Hemophilia, Sickle Cell Disease Infectious Medical History: Denies: HIV Past Surgical History Past Surgical History: Reports: Appendectomy - at age 46 years old, Section - 1981, Orthopedic Surgery - Right hip fx nailed on 01-19-11, 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 Denies: Amputation, Cholecystectomy, Colostomy, Coronary Artery Bypass Graft, Gastric Bypass Surgery, Herniorrhaphy, Hysterectomy, Mastectomy, Pacemaker, Tonsillectomy, Tubal Ligation Social History Lives with: Family Smoking Status: Former Smoker Cigarettes Packs Per Day: 30 Electronic Cigarette use?: No Number of Years Smokin Last Time Smoked: 05/13/20 Frequency of Alcohol Use: Heavy Hx Recreational Drug Use: No Hx Prescription Drug Abuse: No Family History Family History: Reviewed & Not Pertinent Parental Family History Reviewed: Yes Children Family History Reviewed: Yes Sibling(s) Family History Reviewed.: Yes Medication/Allergy Home Medications: Aspirin [Ecotrin 81 mg EC Tablet] 81 mg PO DAILY 05/22/20 Multivitamin [Tab-A-Tevin (Multiple Vitamin) Tablet] 1 tab PO DAILY 05/22/20 Allergies/Adverse Reactions: No Known Allergies Allergy (Verified 07/12/17 11:24) Physical Exam Vital Signs: Temp Pulse Resp BP Pulse Ox 97.9 F 59 L 16 100/62 93 05/23/20 03:28 05/23/20 03:28 05/23/20 03:28 05/23/20 03:28 05/23/20 03:28 Intake & Output 05/21/20 05/22/20 05/23/20 06:59 06:59 06:59 Intake Total 1000 1583 Output Total 350 Balance 1000 1233 Weight 49.3 kg 49.9 kg Results Laboratory Results: 05/22/20 02:49 05/23/20 01:08 05/22/20 05/22/20 05/23/20 13:28 20:28 01:08 Sodium 126.3 L 128.2 L 132.4 L Potassium 4.5 4.4 4.1 Chloride 93 L 98 102 Carbon Dioxide 28 27 27 Anion Gap 5 3 L 3 L BUN 5 L 7 5 L Creatinine 0.41 L 0.48 L 0.41 L Est GFR ( Amer) > 60 > 60 > 60 Glucose 127 H 98 88 Calcium 9.1 8.8 8.7 05/22/20 05/22/20 05/22/20 02:49 07:56 13:28 Troponin I 0.048 0.108 0.159 05/22/20 20:28 Troponin I 0.124 Impressions: Cervical Spine CT 05/22/20 02:57 IMPRESSION: 1. No evidence of acute osseous injury involving the cervical spine. 2. Degenerative changes of the cervical spine at C5-C6 as described above, similar when compared to the prior study. 3. Old healed fracture of the C4 vertebra and spinous process. 4. Centrilobular emphysematous changes in the lung apices and chronic pleural parenchymal scarring in the left lung apex Chest X-Ray 05/22/20 02:57 IMPRESSION: COPD. Lungs are clear copyright 2010 [employer]- All Rights Reserved Head CT 05/22/20 02:57 IMPRESSION: No acute intracranial abnormality TECHNICAL DOCUMENTATION: Quality ID # 436: Final reports with documentation of one or more dose reduction techniques (e.g., Automated exposure control, adjustment of the mA and/or kV according to patient size, use of iterative reconstruction technique) copyright 2011 [employer]- All Rights Reserved 05/23/20 06:27 05/23/20 06:27 MCV 98 fl (80-97) H 05/23/20 06:27 MCH 33.5 pg (27.0-33.4) H 05/23/20 06:27 MCHC 34.2 g/dL (32.0-36.0) 05/23/20 06:27 RDW 12.9 % (11.5-14.0) 05/23/20 06:27 Seg Neutrophils % 62.1 % (42-78) 05/23/20 06:27 Chloride 99 mmol/L (98-107) 05/23/20 06:27 Carbon Dioxide 27 mmol/L (22-30) 05/23/20 06:27 Anion Gap 6 (5-19) 05/23/20 06:27 Est GFR ( Amer) > 60 (>60) 05/23/20 06:27 Glucose 89 mg/dL (75-110) 05/23/20 06:27 Calcium 9.0 mg/dL (8.4-10.2) 05/23/20 06:27 Phosphorus 3.6 mg/dL (2.5-4.5) 05/23/20 06:27 Magnesium 1.7 mg/dL (1.6-2.3) 05/23/20 06:27 Total Bilirubin 1.0 mg/dL (0.2-1.3) 05/22/20 02:49 AST 42 U/L (14-36) H 05/22/20 02:49 Alkaline Phosphatase 109 U/L (38-126) 05/22/20 02:49 Total Protein 7.7 g/dL (6.3-8.2) 05/22/20 02:49 Albumin 4.6 g/dL (3.5-5.0) 05/22/20 02:49 Urine Color YELLOW 05/22/20 04:56 Urine Appearance CLEAR 05/22/20 04:56 Urine pH 7.0 (5.0-9.0) 05/22/20 04:56 Ur Specific Lefor 1.011 05/22/20 04:56 Urine Protein NEGATIVE mg/dL (NEGATIVE) 05/22/20 04:56 Urine Glucose (UA) 50 mg/dL (NEGATIVE) H 05/22/20 04:56 Urine Ketones 20 mg/dL (NEGATIVE) H 05/22/20 04:56 Urine Blood NEGATIVE (NEGATIVE) 05/22/20 04:56 Urine Nitrite NEGATIVE (NEGATIVE) 05/22/20 04:56 Ur Leukocyte Esterase SMALL (NEGATIVE) H 05/22/20 04:56 Urine WBC (Auto) 8 /HPF 05/22/20 04:56 Urine RBC (Auto) 0 /HPF 05/22/20 04:56 05/22/20 05/22/20 05/22/20 02:49 07:56 13:28 Troponin I 0.048 0.108 0.159 05/22/20 20:28 Troponin I 0.124 Current Medication List Generic Name Dose Route Start Last Admin Trade Name Freq PRN Reason Stop Dose Admin Acetaminophen 325 mg 05/22/20 07:04 Acetaminophen 325 Mg Tablet PO 06/21/20 07:03 Q4HP PRN FEVER >101 Albuterol/Ipratropium 3 ml 05/22/20 07:04 Ipratropium/Albuterol 0.5-2.5 Mg/3 Ml Ampul NEB 06/21/20 07:03 RTQ6HP PRN SHORTNESS OF BREATH Aspirin 81 mg 05/23/20 10:00 Aspirin 81 Mg Tablet, Chewable PO 06/22/20 09:59 DAILY SHAE Atorvastatin Calcium 40 mg 05/22/20 22:00 05/22/20 21:37 Atorvastatin Calcium 40 Mg Tablet PO 06/21/20 21:59 40 mg QHS SHAE Administration Carvedilol 12.5 mg 05/22/20 10:00 05/22/20 21:37 Carvedilol 12.5 Mg Tablet PO 06/21/20 09:59 12.5 mg Q12 SHAE Administration Diazepam 10 mg 05/22/20 07:09 Diazepam Inj 10 Mg/2 Ml Disp.Syrin IV 05/29/20 07:08 Q8HP PRN ANXIETY/AGITATION Docusate Sodium 100 mg 05/22/20 10:00 05/22/20 10:10 Docusate Sodium 100 Mg/10 Ml Udc PO 06/21/20 09:59 100 mg DAILY SHAE Administration Famotidine 20 mg 05/22/20 10:00 05/22/20 21:37 Famotidine 20 Mg Tablet PO 06/21/20 09:59 20 mg Q12 SHAE Administration Heparin Sodium (Porcine) 5,000 unit 05/22/20 14:00 05/23/20 06:01 Heparin Sod (Porcine) 5,000 Unit/Ml 1 Ml Vial SUBCUT 06/21/20 13:59 5,000 unit Q8 SHAE Administration Levetiracetam 1,000 mg in 100 mls @ 400 mls/hr 05/22/20 10:00 05/23/20 00:05 Keppra Rtu 1000 Mg/Nacl-Iso 100 Ml Premix IV 06/21/20 09:59 Infused Q12 SHAE Infusion Influenza Virus Vaccine Quadrival 0.5 ml 05/23/20 08:00 Influenza Quad (6mos+) Vac 0.5 Ml Syr IM 05/23/20 08:01 .ONCE ONE Lisinopril 5 mg 05/23/20 10:00 Lisinopril 10 Mg Tablet PO 06/22/20 09:59 DAILY SHAE Lorazepam 1 mg 05/22/20 07:09 Lorazepam Inj 2 Mg/1 Ml Vial IV 05/29/20 07:08 Q4HP PRN ANXIETY/AGITATION Ondansetron HCl 4 mg 05/22/20 07:04 Ondansetron Hcl Inj/Pf 4 Mg/2 Ml Sdv IV 06/21/20 07:03 Q4HP PRN FOR NAUSEA/VOMITING Promethazine HCl 6.25 mg 05/22/20 07:04 Promethazine Hcl Inj 25 Mg/1 Ml Vial IV 06/21/20 07:03 Q4HP PRN FOR NAUSEA/VOMITING Discontinued Medications Generic Name Dose Route Start Last Admin Trade Name Freq PRN Reason Stop Dose Admin Aspirin 325 mg 05/22/20 07:45 05/22/20 07:53 Aspirin 325 Mg Tablet PO 05/22/20 07:46 325 mg NOW ONE Administration Heparin Sodium (Porcine) 5,000 unit 05/22/20 14:00 Heparin Sod (Porcine) 5,000 Unit/Ml 1 Ml Vial SUBCUT 06/21/20 13:59 Q8 SHAE Sodium Chloride 1,000 mls @ 0 mls/hr 05/22/20 02:55 05/22/20 05:21 Nacl 0.9% 1000 Ml Iv Soln IV 05/22/20 02:56 Infused BOLUS ONE Infusion Wide Open Sodium Chloride 1,000 mls @ 100 mls/hr 05/22/20 05:40 05/22/20 05:49 Nacl 0.9% 1000 Ml Iv Soln IV 05/22/20 15:39 100 mls/hr BOLUS ONE Administration Potassium Chloride 20 meq/ 1,023 mls @ 80 mls/hr 05/22/20 07:09 05/22/20 23:00 Magnesium Sulfate 8 meq/ IV 05/22/20 19:56 Infused Thiamine HCl 100 mg/ NOW ONE Infusion Multivitamins/Minerals 10 ml/ Sodium Chloride Lisinopril 10 mg 05/22/20 10:00 05/22/20 10:11 Lisinopril 10 Mg Tablet PO 06/21/20 09:59 10 mg DAILY SHAE Administration Assessment & Plan - Diagnosis (1) Elevated troponin Is this a current diagnosis for this admission?: Yes Plan: The patient denies any history of coronary artery disease in the past and continues to deny ischemic symptoms. Her troponin peaked at 0.159 and is now downtrending. Her echocardiogram on 05/22/2020 did not reveal any regional wall motion abnormalities and has a normal ejection fraction. I do not believe her elevated troponin is from an acute coronary syndrome but supply demand mismatch and uncontrolled hypertension particularly when she came to the emergency room. Recommendations: -Continue with current medical management. -Continue with cardiac telemetry. -Pharmacological nuclear stress test before hospital discharge and when her electrolytes are within normal limits. (2) Hyponatremia Is this a current diagnosis for this admission?: Yes Plan: Improved as of this morning. Further management per hospitalist team. (3) Syncope Qualifiers: Syncope type: unspecified Qualified Code(s): R55 - Syncope and collapse Is this a current diagnosis for this admission?: Yes Plan: Unclear etiology however her telemetry has shown no significant dysrhythmias. Recommendations: -Event monitor upon discharge. -Follow-up with our office upon discharge.
[2020-05-23] MEDS ORDERED: ALBUTEROL SULFATE HFA (90 MCG/PUFF) 8 GM MDI IH PRN (08:48)
[2020-05-23] MEDS: ASPIRIN 81 MG TABLET, CHEWABLE PO SCH (10:44)
[2020-05-23] MEDS: LEVETIRACETAM 1000 MG/NACL-ISO 1,000 MG/100 ML RTUPB IV SCH ×2 (10:44→21:47)
[2020-05-23] MEDS: FAMOTIDINE 20 MG TABLET PO SCH ×2 (10:45→21:28)
[2020-05-23] MEDS: LISINOPRIL 10 MG TABLET PO SCH (10:45)
[2020-05-23] MEDS: CARVEDILOL 12.5 MG TABLET PO SCH ×2 (10:45→21:28)
[2020-05-23] MEDS: DOCUSATE SODIUM 100 MG/10 ML UDC PO SCH (10:45)
[2020-05-23] MEDS ORDERED: IPRATROPIUM/ALBUTEROL 0.5-2.5 MG/3 ML AMPUL NEB SCH (12:00)
[2020-05-23] MEDS: PREDNISONE 20 MG TABLET PO SCH (14:17)
--- NOTE | 2020-05-23 15:51 | PDOC PROGRESS REPORT ---
Subjective Date:: 05/23/20 Subjective:: KAIA APPLE is a 64 year old female past medical history of untreated hypertension, EtOH abuse, brought to ED after witnessed tonic-clonic seizure. Found to have severe hyponatremia and elevated cardiac enzymes. Admitted to hospitalist service for electrolyte correction and further evaluation and treatment. Patient is seen on morning rounds. She is resting comfortably in bed. O2 sat within normal limits on room air. Troponins have peaked and since plateaued. Echo without wall abnormalities. Patient again denies any ischemic symptoms. She does note continued sensation of mucus in her chest, now with some wheezing. Has smoked cigarettes >40 years. She did quit 10 years ago. She remembers being told that she has COPD in the past but has never obtained treatment for it. She did not sleep well last night which she relates to being in an unfamiliar place. She feels tired and a bit fatigued but overall much better than yesterday. Denies withdrawal symptoms. Otherwise denies fever, chills, chest pain, palpitations, numbness/tingling, abdominal pain, nausea, vomiting or diarrhea. Discussed with nursing. ANIKA. No concerns. Reason For Visit: SEIZURE, HYPONATREMIA, ETOH ABUSE, HYPERTENSION, Physical Exam Vital Signs: Temp Pulse Resp BP Pulse Ox 98.0 F 67 16 107/79 93 05/23/20 11:25 05/23/20 12:18 05/23/20 12:18 05/23/20 11:25 05/23/20 12:18 Intake & Output 05/22/20 05/23/20 05/24/20 06:59 06:59 06:59 Intake Total 1000 1583 450 Output Total 350 Balance 1000 1233 450 Weight 49.3 kg 49.9 kg Results Laboratory Results: 05/23/20 06:27 05/23/20 06:27 05/22/20 05/22/20 05/23/20 13:28 20:28 01:08 WBC RBC Hgb Hct MCV MCH MCHC RDW Plt Count Seg Neutrophils % Sodium 126.3 L 128.2 L 132.4 L Potassium 4.5 4.4 4.1 Chloride 93 L 98 102 Carbon Dioxide 28 27 27 Anion Gap 5 3 L 3 L BUN 5 L 7 5 L Creatinine 0.41 L 0.48 L 0.41 L Est GFR ( Amer) > 60 > 60 > 60 Glucose 127 H 98 88 Calcium 9.1 8.8 8.7 Phosphorus Magnesium 05/23/20 05/23/20 06:27 06:27 WBC 5.1 RBC 3.58 L Hgb 12.0 D Hct 35.1 L MCV 98 H MCH 33.5 H MCHC 34.2 RDW 12.9 Plt Count 227 Seg Neutrophils % 62.1 Sodium 132.3 L Potassium 4.2 Chloride 99 Carbon Dioxide 27 Anion Gap 6 BUN 6 L Creatinine 0.46 L Est GFR ( Amer) > 60 Glucose 89 Calcium 9.0 Phosphorus 3.6 Magnesium 1.7 05/22/20 05/22/20 05/22/20 02:49 07:56 13:28 Troponin I 0.048 0.108 0.159 05/22/20 20:28 Troponin I 0.124 Impressions: Cervical Spine CT 05/22/20 02:57 IMPRESSION: 1. No evidence of acute osseous injury involving the cervical spine. 2. Degenerative changes of the cervical spine at C5-C6 as described above, similar when compared to the prior study. 3. Old healed fracture of the C4 vertebra and spinous process. 4. Centrilobular emphysematous changes in the lung apices and chronic pleural parenchymal scarring in the left lung apex Chest X-Ray 05/22/20 02:57 IMPRESSION: COPD. Lungs are clear copyright 2010 [employer]- All Rights Reserved Head CT 05/22/20 02:57 IMPRESSION: No acute intracranial abnormality TECHNICAL DOCUMENTATION: Quality ID # 436: Final reports with documentation of one or more dose reduction techniques (e.g., Automated exposure control, adjustment of the mA and/or kV according to patient size, use of iterative reconstruction technique) copyright 2010 [employer]- All Rights Reserved Assessment and Plan - Diagnosis (1) COPD (chronic obstructive pulmonary disease) Qualifiers: COPD type: COPD with acute exacerbation Qualified Code(s): J44.1 - Chronic obstructive pulmonary disease with (acute) exacerbation Is this a current diagnosis for this admission?: Yes Plan: Previously diagnosed, though never treated. Complaining of shortness of breath, mucus in chest, chronic cough, chronic chest tightness, and difficulty with performing daily tasks. >40yr history cigarette use. Quit smoking 10 days ago. CXR: findings consistent with COPD. CAT score 25 mMRC breathlessness scale 3 Has never been treated for exacerbation in past. Scheduled breathing treatments, incentive spirometry and flutter valve. Prednisone 40mg x5 days. Abx not indicated at this time. Plan to dc home with PARMINDER prn, LAMA+LABA once daily. - F/u PCP, outpatient pulm, may benefit from pulmonary rehab (2) Seizure Is this a current diagnosis for this admission?: Yes Plan: It is unclear if this was seizure activity or syncopal episode. Without seizure activity since admission. Likely due to EtOH induced hyponatremia. Hx single seizure 3 years ago, denied pharmacological tx previous Hx heavy alcohol abuse and drinks multiple beer bottles with wine daily. CT head negative for any acute abnormalities. Chest x-ray negative for any acute abnormalities. Cnt Keppra 1000 mg p.o. twice daily. Cnt to correct hyponatermia. Cardiology is on board, discussed case, note reviewed in detail. -On telemetry, without noted arrhythmias -Recommends outpatient follow-up (3) Hyponatremia Is this a current diagnosis for this admission?: Yes Plan: Improving with fluid restriction. 132.3 today. Likely beer proteinemia. History of excessive EtOH abuse. Cnt BMP every 6 hours. If worsens, consider hypertonic saline. (4) Elevated troponin Is this a current diagnosis for this admission?: Yes Plan: Peaked, plateaued, stable. 0.048, 0.108, 0.159, 0.124 Denies any anginal symptoms or any history of CAD. Likely secondary to supply demand mismatch match and uncontrolled hypertension. Echo 05/22: Without wall motion abnormalities. Ejection fraction 65-70%. Grade I diastolic dysfunction, mild pulm HTN. Cardiology consulted, agreed to see patient, discussed case, note reviewed in detail. - Pharmacological stress test likely Monday. - Cnt current med management. (5) ETOH abuse Is this a current diagnosis for this admission?: Yes Plan: Most recent CIWA 1. Cnt to monitor. Patient has history of heavy alcohol abuse and drinks multiple beer bottles with wine daily. Patient has had a seizure episode 3 years ago which may have been also due to EtOH abuse. Admit to IMCU, seizure, fall and aspiration precautions, DT protocol. (6) Hypertension Qualifiers: Hypertension type: essential hypertension Qualified Code(s): I10 - Essential (primary) hypertension Is this a current diagnosis for this admission?: Yes Plan: BP within acceptable range. History of untreated hypertension. Continue beta-blockers and calcium channel blockers. Avoid diuretics to prevent electrolyte abnormalities. - Plan Summary Summary: Continue to monitor sodium. Stress test Monday prior to discharge. - Time Time Spent with patient: 35 or more minutes Medications reviewed and adjusted accordingly: Yes Anticipated Discharge Disposition: Home, Self Care Anticipated Discharge Timeframe: within 72 hours
[2020-05-23] MEDS: ALBUTEROL SULFATE HFA (90 MCG/PUFF) 8 GM MDI IH SCH ×3 (18:33→21:29)
[2020-05-23] MEDS: ATORVASTATIN CALCIUM 40 MG TABLET PO SCH (21:28)
[2020-05-24] MEDS: ALBUTEROL SULFATE HFA (90 MCG/PUFF) 8 GM MDI IH SCH ×7 (00:24→23:27)
[2020-05-24] MEDS: HEPARIN SOD (PORCINE) 5,000 UNIT/ML 1 ML VIAL SUBCUT SCH ×3 (05:33→21:34)
[2020-05-24 07:05] LABS: HEMATOCRIT 35.9 % (36.0-47.0); HEMOGLOBIN 12.2 g/dL (12.0-15.5); MEAN CORPUSCULAR HEMOGLOBIN 33.5 pg (27.0-33.4); MEAN CORPUSCULAR VOLUME 99 fl (80-97); PLATELET COUNT 247 10^3/uL (150-450); RED BLOOD COUNT 3.64 10^6/uL (3.72-5.28); RED CELL DISTRIBUTION WIDTH 12.6 % (11.5-14.0); WHITE BLOOD COUNT 4.8 10^3/uL (4.0-10.5)
--- NOTE | 2020-05-24 07:33 | PDOC PROGRESS REPORT ---
Subjective Date:: 05/24/20 Subjective:: KAIA APPLE is a 64 year old female with history of tobacco use, untreated hypertension, alcohol abuse, not known to have any cardiac history who is consulted to our service for evaluation of elevated troponin. The patient had been in her usual state of health until the day of admission when, upon standing from a supine position, she had a syncopal event and was noted to have jerking movements which her family thought it was a seizure therefore she was brought to the emergency room. Per her admission note, she was apparently unresponsive anywhere from 20 to 30 minutes however upon arrival to the emergency room she was awake although confused. In our emergency room she was noted to have a systolic blood pressure of 185 mmHg as well as severe hyponatremia and another laboratory abnormalities. This morning she is fully awake and without cardiovascular complaints. She denies prior history of coronary artery disease or any other cardiac history and states that she was diagnosed with hypertension just recently. She quit tobacco approximately 10 days ago. Her telemetry shows normal sinus rhythm with PVCs and artifact. 05/24/20: The patient had an uneventful night and is now treated for COPD. She has remained hemodynamically and electrically stable and without cardiac complaints. Her telemetry shows normal sinus rhythm with competing junctional rhythm. Physical exam on 05/24/2020: GENERAL: Looks older than stated age. Pleasant and conversational. Oriented x3 with normal mood. Not in acute distress. Well groomed and well developed. HEENT: Normocephalic, atraumatic. Pupils equal. Sclerae anicteric. Oropharynx moist. NECK: No JVD. No carotid bruits. LUNGS: Severely decreased breath sounds bilaterally, clear to auscultation. Normal respiratory effort without the use of accessory muscles or intercostal retractions. CARDIOVASCULAR: Regular rate and rhythm, normal S1 and S2 without murmurs, rubs, or gallops. PMI not displaced. ABDOMEN: No masses or tenderness to palpation. No bruit. No splenomegaly or hepatomegaly. No abdominal aorta bruit noted. EXTREMITIES: No edema, no cyanosis, no clubbing. +2 pulses femoral and pedal pulses bilaterally. SKIN: No lesions or rashes. MUSCULOSKELETAL: No chest tenderness to palpation. NEUROLOGIC: Nonfocal. No gross sensory or motor deficits bilateral upper or lower extremities. Cardiac studies: Echocardiogram on 05/22/2020: -Mild concentric LVH. -EF greater than 65%. -No gross regional wall motion abnormalities. -Grade 1 diastolic dysfunction. -Trace, anterior pericardial effusion. -No prior studies for comparison. Reason For Visit: SEIZURE, HYPONATREMIA, ETOH ABUSE, HYPERTENSION, Physical Exam Vital Signs: Temp Pulse Resp BP Pulse Ox 97.9 F 57 L 18 141/67 H 97 05/24/20 03:36 05/24/20 03:36 05/24/20 03:36 05/24/20 03:36 05/24/20 03:36 Intake & Output 05/22/20 05/23/20 05/24/20 06:59 06:59 06:59 Intake Total 1000 1583 1010 Output Total 350 Balance 1000 1233 1010 Weight 49.3 kg 49.9 kg Results Laboratory Results: 05/23/20 06:27 05/23/20 06:27 05/23/20 05/23/20 06:27 06:27 WBC 5.1 RBC 3.58 L Hgb 12.0 D Hct 35.1 L MCV 98 H MCH 33.5 H MCHC 34.2 RDW 12.9 Plt Count 227 Seg Neutrophils % 62.1 Sodium 132.3 L Potassium 4.2 Chloride 99 Carbon Dioxide 27 Anion Gap 6 BUN 6 L Creatinine 0.46 L Est GFR ( Amer) > 60 Glucose 89 Calcium 9.0 Phosphorus 3.6 Magnesium 1.7 05/22/20 05/22/20 05/22/20 02:49 07:56 13:28 Troponin I 0.048 0.108 0.159 05/22/20 20:28 Troponin I 0.124 Impressions: Cervical Spine CT 05/22/20 02:57 IMPRESSION: 1. No evidence of acute osseous injury involving the cervical spine. 2. Degenerative changes of the cervical spine at C5-C6 as described above, similar when compared to the prior study. 3. Old healed fracture of the C4 vertebra and spinous process. 4. Centrilobular emphysematous changes in the lung apices and chronic pleural parenchymal scarring in the left lung apex Chest X-Ray 05/22/20 02:57 IMPRESSION: COPD. Lungs are clear copyright 2011 [employer]- All Rights Reserved Head CT 05/22/20 02:57 IMPRESSION: No acute intracranial abnormality TECHNICAL DOCUMENTATION: Quality ID # 436: Final reports with documentation of one or more dose reduction techniques (e.g., Automated exposure control, adjustment of the mA and/or kV according to patient size, use of iterative reconstruction technique) copyright 2011 [employer]- All Rights Reserved 05/24/20 05:40 MCV 99 fl (80-97) H 05/24/20 05:40 MCH 33.5 pg (27.0-33.4) H 05/24/20 05:40 MCHC 34.0 g/dL (32.0-36.0) 05/24/20 05:40 RDW 12.6 % (11.5-14.0) 05/24/20 05:40 Seg Neutrophils % 62.1 % (42-78) 05/23/20 06:27 Chloride 99 mmol/L (98-107) 05/23/20 06:27 Carbon Dioxide 27 mmol/L (22-30) 05/23/20 06:27 Anion Gap 6 (5-19) 05/23/20 06:27 Est GFR ( Amer) > 60 (>60) 05/23/20 06:27 Glucose 89 mg/dL (75-110) 05/23/20 06:27 Calcium 9.0 mg/dL (8.4-10.2) 05/23/20 06:27 Phosphorus 3.6 mg/dL (2.5-4.5) 05/23/20 06:27 Magnesium 1.7 mg/dL (1.6-2.3) 05/23/20 06:27 Total Bilirubin 1.0 mg/dL (0.2-1.3) 05/22/20 02:49 AST 42 U/L (14-36) H 05/22/20 02:49 Alkaline Phosphatase 109 U/L (38-126) 05/22/20 02:49 Total Protein 7.7 g/dL (6.3-8.2) 05/22/20 02:49 Albumin 4.6 g/dL (3.5-5.0) 05/22/20 02:49 Urine Color YELLOW 05/22/20 04:56 Urine Appearance CLEAR 05/22/20 04:56 Urine pH 7.0 (5.0-9.0) 05/22/20 04:56 Ur Specific [place] 1.011 05/22/20 04:56 Urine Protein NEGATIVE mg/dL (NEGATIVE) 05/22/20 04:56 Urine Glucose (UA) 50 mg/dL (NEGATIVE) H 05/22/20 04:56 Urine Ketones 20 mg/dL (NEGATIVE) H 05/22/20 04:56 Urine Blood NEGATIVE (NEGATIVE) 05/22/20 04:56 Urine Nitrite NEGATIVE (NEGATIVE) 05/22/20 04:56 Ur Leukocyte Esterase SMALL (NEGATIVE) H 05/22/20 04:56 Urine WBC (Auto) 8 /HPF 05/22/20 04:56 Urine RBC (Auto) 0 /HPF 05/22/20 04:56 05/22/20 05/22/20 05/22/20 02:49 07:56 13:28 Troponin I 0.048 0.108 0.159 05/22/20 20:28 Troponin I 0.124 Current Medication List Generic Name Dose Route Start Last Admin Trade Name Freq PRN Reason Stop Dose Admin Acetaminophen 325 mg 05/22/20 07:04 Acetaminophen 325 Mg Tablet PO 06/21/20 07:03 Q4HP PRN FEVER >101 Albuterol 2 puff 05/23/20 12:00 05/24/20 05:33 Albuterol Sulfate Hfa (90 Mcg/Puff) 8 Gm Mdi IH 06/22/20 11:59 2 inhaler Q4H SHAE Administration Albuterol/Ipratropium 3 ml 05/23/20 12:00 Ipratropium/Albuterol 0.5-2.5 Mg/3 Ml Ampul NEB 06/22/20 11:59 RTQ6HP SHAE Aspirin 81 mg 05/23/20 10:00 05/23/20 10:44 Aspirin 81 Mg Tablet, Chewable PO 06/22/20 09:59 81 mg DAILY SHAE Administration Atorvastatin Calcium 40 mg 05/22/20 22:00 05/23/20 21:28 Atorvastatin Calcium 40 Mg Tablet PO 06/21/20 21:59 40 mg QHS SHAE Administration Carvedilol 12.5 mg 05/22/20 10:00 05/23/20 21:28 Carvedilol 12.5 Mg Tablet PO 06/21/20 09:59 12.5 mg Q12 SHAE Administration Diazepam 10 mg 05/22/20 07:09 Diazepam Inj 10 Mg/2 Ml Disp.Syrin IV 05/29/20 07:08 Q8HP PRN ANXIETY/AGITATION Docusate Sodium 100 mg 05/22/20 10:00 05/23/20 10:45 Docusate Sodium 100 Mg/10 Ml Udc PO 06/21/20 09:59 Not Given DAILY SHAE Famotidine 20 mg 05/22/20 10:00 05/23/20 21:28 Famotidine 20 Mg Tablet PO 06/21/20 09:59 20 mg Q12 SHAE Administration Fluticasone/Vilanterol 1 inh 05/24/20 10:00 Fluticasone/Umeclidin/Vilanter 100-62.5-25 Mcg/Dose IH 06/23/20 09:59 DAILY SHAE Heparin Sodium (Porcine) 5,000 unit 05/22/20 14:00 05/24/20 05:33 Heparin Sod (Porcine) 5,000 Unit/Ml 1 Ml Vial SUBCUT 06/21/20 13:59 5,000 unit Q8 SHAE Administration Levetiracetam 1,000 mg in 100 mls @ 400 mls/hr 05/22/20 10:00 05/23/20 22:35 Keppra Rtu 1000 Mg/Nacl-Iso 100 Ml Premix IV 06/21/20 09:59 Infused Q12 SHAE Infusion Lisinopril 5 mg 05/23/20 10:00 05/23/20 10:45 Lisinopril 10 Mg Tablet PO 06/22/20 09:59 5 mg DAILY SHAE Administration Lorazepam 1 mg 05/22/20 07:09 Lorazepam Inj 2 Mg/1 Ml Vial IV 05/29/20 07:08 Q4HP PRN ANXIETY/AGITATION Ondansetron HCl 4 mg 05/22/20 07:04 Ondansetron Hcl Inj/Pf 4 Mg/2 Ml Sdv IV 06/21/20 07:03 Q4HP PRN FOR NAUSEA/VOMITING Prednisone 40 mg 05/23/20 12:00 05/23/20 14:17 Prednisone 20 Mg Tablet PO 05/27/20 11:59 40 mg DAILY SHAE Administration Promethazine HCl 6.25 mg 05/22/20 07:04 Promethazine Hcl Inj 25 Mg/1 Ml Vial IV 06/21/20 07:03 Q4HP PRN FOR NAUSEA/VOMITING Discontinued Medications Generic Name Dose Route Start Last Admin Trade Name Freq PRN Reason Stop Dose Admin Albuterol 2 puff 05/23/20 08:48 Albuterol Sulfate Hfa (90 Mcg/Puff) 8 Gm Mdi IH 06/22/20 08:47 Q4HP PRN FOR WHEEZING Albuterol/Ipratropium 3 ml 05/22/20 07:04 Ipratropium/Albuterol 0.5-2.5 Mg/3 Ml Ampul NEB 06/21/20 07:03 RTQ6HP PRN SHORTNESS OF BREATH Aspirin 325 mg 05/22/20 07:45 05/22/20 07:53 Aspirin 325 Mg Tablet PO 05/22/20 07:46 325 mg NOW ONE Administration Heparin Sodium (Porcine) 5,000 unit 05/22/20 14:00 Heparin Sod (Porcine) 5,000 Unit/Ml 1 Ml Vial SUBCUT 06/21/20 13:59 Q8 SHAE Sodium Chloride 1,000 mls @ 0 mls/hr 05/22/20 02:55 05/22/20 05:21 Nacl 0.9% 1000 Ml Iv Soln IV 05/22/20 02:56 Infused BOLUS ONE Infusion Wide Open Sodium Chloride 1,000 mls @ 100 mls/hr 05/22/20 05:40 05/22/20 05:49 Nacl 0.9% 1000 Ml Iv Soln IV 05/22/20 15:39 100 mls/hr BOLUS ONE Administration Potassium Chloride 20 meq/ 1,023 mls @ 80 mls/hr 05/22/20 07:09 05/22/20 23:00 Magnesium Sulfate 8 meq/ IV 05/22/20 19:56 Infused Thiamine HCl 100 mg/ NOW ONE Infusion Multivitamins/Minerals 10 ml/ Sodium Chloride Influenza Virus Vaccine Quadrival 0.5 ml 05/23/20 08:00 Influenza Quad (6mos+) Vac 0.5 Ml Syr IM 05/23/20 08:01 .ONCE ONE Lisinopril 10 mg 05/22/20 10:00 05/22/20 10:11 Lisinopril 10 Mg Tablet PO 06/21/20 09:59 10 mg DAILY SHAE Administration Assessment & Plan - Diagnosis (1) Elevated troponin Is this a current diagnosis for this admission?: Yes Plan: The patient denies any history of coronary artery disease in the past and continues to deny ischemic symptoms. Her troponin peaked at 0.159 and is now downtrending. Her echocardiogram on 05/22/2020 did not reveal any regional wall motion abnormalities and has a normal ejection fraction. I do not believe her elevated troponin is from an acute coronary syndrome but supply demand mismatch and uncontrolled hypertension particularly when she came to the emergency room. She continues to be hemodynamically and electrically stable. Recommendations: -Continue with current medical management. -Continue with cardiac telemetry. -Pharmacological nuclear stress test on 05/25/2020, please keep patient n.p.o. after midnight tonight. (2) Hyponatremia Is this a current diagnosis for this admission?: Yes Plan: Improved. Further management per hospitalist team. (3) Syncope Qualifiers: Syncope type: unspecified Qualified Code(s): R55 - Syncope and collapse Is this a current diagnosis for this admission?: Yes Plan: Unclear etiology however her telemetry has shown no significant dysrhythmias. Recommendations: -Event monitor upon discharge. -Follow-up with our office upon discharge.
[2020-05-24 07:36] LABS: ANION GAP 5 (5-19); BLOOD UREA NITROGEN 5 mg/dL (7-20); CALCIUM 9.3 mg/dL (8.4-10.2); CARBON DIOXIDE 32 mmol/L (22-30); CHLORIDE 96 mmol/L (98-107); GLUCOSE 108 mg/dL (75-110); POTASSIUM 4.1 mmol/L (3.6-5.0)
[2020-05-24] MEDS ORDERED: DEXTROSE 50%-WATER 25 GM/50 ML DISP.SYRIN IV PRN ×2 (08:04)
[2020-05-24] MEDS ORDERED: GLUCAGON,HUMAN RECOMB 1 MG INJ SUBCUT PRN (08:04)
[2020-05-24] MEDS ORDERED: DEXTROSE 40% GEL 15 GM TUBE PO PRN ×2 (08:04)
--- NOTE | 2020-05-24 09:22 | EKG REPORT ---
SEVERITY:- ABNORMAL ECG - ACCELERATED JUNCTIONAL ESCAPE RHYTHM : Confirmed by: Jose Ramon Jones MD 24-May-2020 09:22:05
[2020-05-24] MEDS: LEVETIRACETAM 1000 MG/NACL-ISO 1,000 MG/100 ML RTUPB IV SCH (10:01)
[2020-05-24] MEDS: LISINOPRIL 10 MG TABLET PO SCH (10:02)
[2020-05-24] MEDS: PREDNISONE 20 MG TABLET PO SCH (10:02)
[2020-05-24] MEDS: ASPIRIN 81 MG TABLET, CHEWABLE PO SCH (10:02)
[2020-05-24] MEDS: CARVEDILOL 12.5 MG TABLET PO SCH ×2 (10:02→21:33)
[2020-05-24] MEDS: DOCUSATE SODIUM 100 MG/10 ML UDC PO SCH (10:03)
[2020-05-24] MEDS: FAMOTIDINE 20 MG TABLET PO SCH ×2 (10:03→21:33)
[2020-05-24] MEDS: FLUTICASONE/UMECLIDIN/VILANTER 100-62.5-25 MCG/DOSE IH SCH (10:10)
--- NOTE | 2020-05-24 17:09 | PDOC PROGRESS REPORT ---
Subjective Date:: 05/24/20 Subjective:: KAIA APPLE is a 64 year old female past medical history of untreated hypertension, EtOH abuse, brought to ED after witnessed tonic-clonic seizure. Found to have severe hyponatremia and elevated cardiac enzymes. Admitted to hospitalist service for electrolyte correction and further evaluation and treatment. Patient is seen on morning rounds. She is resting comfortably in bed. O2 sat within normal limits on room air. Patient again denies any ischemic symptoms. Yesterday we implemented COPD exacerbation treatment with noted improvement in patient's overall symptoms, denies chest mucus/tightness at this time states that she is breathing better. She is scheduled for stress test tomorrow morning. She understands that she is to be n.p.o. after midnight. She provides me with no other concerns or complaints today. Discussed with nursing. ANIKA. Reason For Visit: SEIZURE, HYPONATREMIA, ETOH ABUSE, HYPERTENSION, Physical Exam Vital Signs: Temp Pulse Resp BP Pulse Ox 97.6 F 62 18 160/80 H 99 05/24/20 15:41 05/24/20 15:41 05/24/20 15:41 05/24/20 15:41 05/24/20 15:41 Intake & Output 05/23/20 05/24/20 05/25/20 06:59 06:59 06:59 Intake Total 1583 1130 450 Output Total 350 Balance 1233 1130 450 Weight 49.9 kg 50 kg General appearance: PRESENT: no acute distress, cooperative, well-developed Head exam: PRESENT: atraumatic, normocephalic Eye exam: PRESENT: EOMI. ABSENT: scleral icterus Mouth exam: PRESENT: moist Neck exam: PRESENT: full ROM. ABSENT: JVD Respiratory exam: PRESENT: clear to auscultation nisa, symmetrical. ABSENT: wheezes Cardiovascular exam: PRESENT: RRR GI/Abdominal exam: PRESENT: soft. ABSENT: tenderness Extremities exam: PRESENT: full ROM. ABSENT: pedal edema Musculoskeletal exam: PRESENT: ambulatory, full ROM. ABSENT: deformity Neurological exam: PRESENT: alert, awake, oriented to person, oriented to place, oriented to time, oriented to situation Psychiatric exam: PRESENT: appropriate affect, normal mood Skin exam: PRESENT: dry, intact, warm Results Laboratory Results: 05/24/20 05:40 05/24/20 05:40 05/24/20 05/24/20 05:40 05:40 WBC 4.8 RBC 3.64 L Hgb 12.2 Hct 35.9 L MCV 99 H MCH 33.5 H MCHC 34.0 RDW 12.6 Plt Count 247 Sodium 132.8 L Potassium 4.1 Chloride 96 L Carbon Dioxide 32 H Anion Gap 5 BUN 5 L Creatinine 0.39 L Est GFR ( Amer) > 60 Glucose 108 Calcium 9.3 05/22/20 05/22/20 05/22/20 02:49 07:56 13:28 Troponin I 0.048 0.108 0.159 05/22/20 20:28 Troponin I 0.124 Impressions: Cervical Spine CT 05/22/20 02:57 IMPRESSION: 1. No evidence of acute osseous injury involving the cervical spine. 2. Degenerative changes of the cervical spine at C5-C6 as described above, similar when compared to the prior study. 3. Old healed fracture of the C4 vertebra and spinous process. 4. Centrilobular emphysematous changes in the lung apices and chronic pleural parenchymal scarring in the left lung apex Chest X-Ray 05/22/20 02:57 IMPRESSION: COPD. Lungs are clear copyright 2010 [employer]- All Rights Reserved Head CT 05/22/20 02:57 IMPRESSION: No acute intracranial abnormality TECHNICAL DOCUMENTATION: Quality ID # 436: Final reports with documentation of one or more dose reduction techniques (e.g., Automated exposure control, adjustment of the mA and/or kV according to patient size, use of iterative reconstruction technique) copyright 2011 [employer]- All Rights Reserved Assessment and Plan - Diagnosis (1) COPD (chronic obstructive pulmonary disease) Qualifiers: COPD type: COPD with acute exacerbation Qualified Code(s): J44.1 - Chronic obstructive pulmonary disease with (acute) exacerbation Is this a current diagnosis for this admission?: Yes Plan: Improving. Continue current therapy. Previously diagnosed, though never treated. >40yr history cigarette use. Quit smoking 10 days ago. CXR: findings consistent with COPD. CAT score 25 mMRC breathlessness scale 3 Has never been treated for exacerbation in past. Scheduled breathing treatments, incentive spirometry and flutter valve. Prednisone 40mg x5 days. Abx not indicated at this time. Plan to dc home with PARMINDER prn, LAMA+LABA once daily. - F/u PCP, outpatient pulm, may benefit from pulmonary rehab (2) Seizure Is this a current diagnosis for this admission?: Yes Plan: It is unclear if this was seizure activity or syncopal episode. Without seizure activity since admission. Likely due to EtOH induced hyponatremia. Hx single seizure 3 years ago, denied pharmacological tx previous Hx heavy alcohol abuse and drinks multiple beer bottles with wine daily. CT head negative for any acute abnormalities. Chest x-ray negative for any acute abnormalities. Cnt Keppra 1000 mg p.o. twice daily. Cnt to correct hyponatermia. Cardiology is on board, discussed case, note reviewed in detail. -On telemetry, without noted arrhythmias -Recommends outpatient follow-up (3) Hyponatremia Is this a current diagnosis for this admission?: Yes Plan: Improved. 132. Likely beer proteinemia. History of excessive EtOH abuse. Cnt BMP daily. (4) Elevated troponin Is this a current diagnosis for this admission?: Yes Plan: Peaked, plateaued, stable. 0.048, 0.108, 0.159, 0.124 Denies any anginal symptoms or any history of CAD. Likely secondary to supply demand mismatch match and uncontrolled hypertension. Echo 05/22: Without wall motion abnormalities. Ejection fraction 65-70%. Grade I diastolic dysfunction, mild pulm HTN. Cardiology consulted, agreed to see patient, discussed case, note reviewed in detail. - Pharmacological stress test Monday. - Cnt current med management. (5) ETOH abuse Is this a current diagnosis for this admission?: Yes Plan: Most recent CIWA 1. Cnt to monitor. Patient has history of heavy alcohol abuse and drinks multiple beer bottles with wine daily. Patient has had a seizure episode 3 years ago which may have been also due to EtOH abuse. Admit to IMCU, seizure, fall and aspiration precautions, DT protocol. (6) Hypertension Qualifiers: Hypertension type: essential hypertension Qualified Code(s): I10 - Essential (primary) hypertension Is this a current diagnosis for this admission?: Yes Plan: BP within acceptable range. History of untreated hypertension. Continue beta-blockers and calcium channel blockers. Avoid diuretics to prevent electrolyte abnormalities. - Plan Summary Summary: Continue to monitor sodium. Stress test Monday prior to discharge. - Time Time Spent with patient: 25-34 minutes Medications reviewed and adjusted accordingly: Yes Anticipated Discharge Disposition: Home, Self Care Anticipated Discharge Timeframe: within 48 hours
--- NOTE | 2020-05-24 20:02 | Progress Note ---
Provider Note Provider Note: A double standard ekg was ordered to better assess this patient's rhythm but, unfortunately, a normal standard ekg was done. Close inspection of the ekg demonstrate P waves in lead aVL consistent with sinus rhythm instead of an accelerated junctional rhythm.
--- NOTE | 2020-05-24 20:35 | EKG REPORT ---
SEVERITY:- ABNORMAL ECG - ACCELERATED JUNCTIONAL ESCAPE RHYTHM : Confirmed by: Jose Ramon Jones MD 24-May-2020 20:35:04
[2020-05-24] MEDS: ATORVASTATIN CALCIUM 40 MG TABLET PO SCH (21:32)
[2020-05-24] MEDS: LEVETIRACETAM 500 MG TABLET PO SCH (21:33)
[2020-05-25] MEDS: HEPARIN SOD (PORCINE) 5,000 UNIT/ML 1 ML VIAL SUBCUT SCH ×2 (05:44→14:43)
[2020-05-25] MEDS: ALBUTEROL SULFATE HFA (90 MCG/PUFF) 8 GM MDI IH SCH ×3 (05:44→11:16)
[2020-05-25 05:58] LABS: HEMATOCRIT 34.9 % (36.0-47.0); HEMOGLOBIN 12.1 g/dL (12.0-15.5); MEAN CORPUSCULAR HGB CONC 34.8 g/dL (32.0-36.0); MEAN CORPUSCULAR VOLUME 98 fl (80-97); PLATELET COUNT 228 10^3/uL (150-450); RED BLOOD COUNT 3.56 10^6/uL (3.72-5.28); RED CELL DISTRIBUTION WIDTH 12.4 % (11.5-14.0); WHITE BLOOD COUNT 6.4 10^3/uL (4.0-10.5)
[2020-05-25 06:28] LABS: ANION GAP 5 (5-19); BLOOD UREA NITROGEN 4 mg/dL (7-20); CALCIUM 9.5 mg/dL (8.4-10.2); CARBON DIOXIDE 33 mmol/L (22-30); CHLORIDE 96 mmol/L (98-107); GLUCOSE 95 mg/dL (75-110); POTASSIUM 3.7 mmol/L (3.6-5.0)
[2020-05-25] MEDS ORDERED: LISINOPRIL 10 MG TABLET PO SCH (10:00)
--- NOTE | 2020-05-25 11:11 | DRAGON STRESS TEST REPORT ---
Name: Shelby Romero : Jun Date: MAY 17 The patient underwent a stress/rest, single isotope SPECT Imaging with exercise stress and gated SPECT imaging for evaluation of mildly elevated troponin. The patient underwent treadmill exercise using the Modified Frank protocol, completing 7:46 minutes and completing an estimated workload of 4.6 metabolic equivalents (METS). The test was terminated due to fatigue. The heart rate was 65 beats per minute at baseline and increased to 98 beats at peak exercise, which was 62% of the maximum predicted heart rate. The rest blood pressure was 157/56 mm/Hg and increased to 202/75 mm/Hg, which is a normal response. The patient complained of leg weakness and fatigue during the procedure. The resting electrocardiogram demonstrated NSR with frequent episodes of junctional rhythm and did not show ST-segment changes consistent with ischemia. Myocardial perfusion imaging was performed at rest following the injection of 10.24 mCi of sestamibi. At peak exercise, the patient was injected with 30.1 mCi of sestamibi and exercise was continued for minute(s). Gating post-stress tomographic imaging was performed 60 minutes after stress. Findings The overall quality of the study is good. Raw images demonstrate no significant artifacts. Left ventricular cavity is noted to be normal on the rest and stress studies. Resting SPECT images demonstrate homogeneous tracer distribution throughout the myocardium. The stress images reveal homogeneous tracer distribution throughout the myocardium. Gated SPECT imaging reveals normal myocardial thickening and wall motion. The left ventricular ejection fraction was calculated to be 64% Impression -Submaximal stress test secondary to BB therapy. -Severely decreased exercise tolerance. -No exercise-induced dysrhythmias. -Myocardial perfusion imaging is normal at the achieved workload. -There is no scintigraphic evidence of ischemia or infarct. -Overall left ventricular systolic function was normal without wall motion abnormalities. -There are no prior studies for comparison. [facility]
--- NOTE | 2020-05-25 11:15 | PDOC PROGRESS REPORT ---
Subjective Date:: 05/25/20 Subjective:: KAIA APPLE is a 64 year old female with history of tobacco use, untreated hypertension, alcohol abuse, not known to have any cardiac history who is consulted to our service for evaluation of elevated troponin. The patient had been in her usual state of health until the day of admission when, upon standing from a supine position, she had a syncopal event and was noted to have jerking movements which her family thought it was a seizure therefore she was brought to the emergency room. Per her admission note, she was apparently unresponsive anywhere from 20 to 30 minutes however upon arrival to the emergency room she was awake although confused. In our emergency room she was noted to have a systolic blood pressure of 185 mmHg as well as severe hyponatremia and another laboratory abnormalities. This morning she is fully awake and without cardiovascular complaints. She denies prior history of coronary artery disease or any other cardiac history and states that she was diagnosed with hypertension just recently. She quit tobacco approximately 10 days ago. Her telemetry shows normal sinus rhythm with PVCs and artifact. 05/25/20: The patient had an uneventful night and is now treated for COPD. She has remained hemodynamically and electrically stable and without cardiac complaints. Her telemetry and subsequent EKGs continue to demonstrate sinus rhythm with j unctional rhythm that has not become more prevalent and she has become slightly bradycardic although asymptomatic. She is scheduled to undergo Lexiscan stress test today however I changed that to an exercise nuclear stress test given the potential of Lexiscan completely blocking AV node/junction activity. I also discontinued her beta-giuseppe. Physical exam on 05/25/2020: GENERAL: Looks older than stated age. Pleasant and conversational. Oriented x3 with normal mood. Not in acute distress. Well groomed and well developed. HEENT: Normocephalic, atraumatic. Pupils equal. Sclerae anicteric. Oropharynx moist. NECK: No JVD. No carotid bruits. LUNGS: Severely decreased breath sounds bilaterally, clear to auscultation. Normal respiratory effort without the use of accessory muscles or intercostal retractions. CARDIOVASCULAR: Regular rate and rhythm, normal S1 and S2 without murmurs, rubs, or gallops. PMI not displaced. ABDOMEN: No masses or tenderness to palpation. No bruit. No splenomegaly or hepatomegaly. No abdominal aorta bruit noted. EXTREMITIES: No edema, no cyanosis, no clubbing. +2 pulses femoral and pedal pulses bilaterally. SKIN: No lesions or rashes. MUSCULOSKELETAL: No chest tenderness to palpation. NEUROLOGIC: Nonfocal. No gross sensory or motor deficits bilateral upper or lower extremities. Cardiac studies: Echocardiogram on 05/22/2020: -Mild concentric LVH. -EF greater than 65%. -No gross regional wall motion abnormalities. -Grade 1 diastolic dysfunction. -Trace, anterior pericardial effusion. -No prior studies for comparison. Reason For Visit: SEIZURE, HYPONATREMIA, ETOH ABUSE, HYPERTENSION, Physical Exam Vital Signs: Temp Pulse Resp BP Pulse Ox 98.5 F 58 L 16 147/75 H 97 05/25/20 03:56 05/25/20 03:56 05/25/20 03:56 05/25/20 03:56 05/25/20 03:56 Intake & Output 05/24/20 05/25/20 05/26/20 06:59 06:59 06:59 Intake Total 1130 850 Balance 1130 850 Weight 50 kg Results Laboratory Results: 05/25/20 05:15 05/25/20 05:15 05/25/20 05/25/20 05:15 05:15 WBC 6.4 RBC 3.56 L Hgb 12.1 Hct 34.9 L MCV 98 H MCH 34.0 H MCHC 34.8 RDW 12.4 Plt Count 228 Sodium 134.0 L Potassium 3.7 Chloride 96 L Carbon Dioxide 33 H Anion Gap 5 BUN 4 L Creatinine 0.49 L Est GFR ( Amer) > 60 Glucose 95 Calcium 9.5 05/22/20 05/22/20 05/22/20 02:49 07:56 13:28 Troponin I 0.048 0.108 0.159 05/22/20 20:28 Troponin I 0.124 Impressions: Cervical Spine CT 05/22/20 02:57 IMPRESSION: 1. No evidence of acute osseous injury involving the cervical spine. 2. Degenerative changes of the cervical spine at C5-C6 as described above, similar when compared to the prior study. 3. Old healed fracture of the C4 vertebra and spinous process. 4. Centrilobular emphysematous changes in the lung apices and chronic pleural parenchymal scarring in the left lung apex Chest X-Ray 05/22/20 02:57 IMPRESSION: COPD. Lungs are clear copyright 2011 [employer]- All Rights Reserved Head CT 05/22/20 02:57 IMPRESSION: No acute intracranial abnormality TECHNICAL DOCUMENTATION: Quality ID # [id number]: Final reports with documentation of one or more dose reduction techniques (e.g., Automated exposure control, adjustment of the mA and/or kV according to patient size, use of iterative reconstruction technique) copyright 2011 [employer]- All Rights Reserved 05/25/20 05:15 05/25/20 05:15 MCV 98 fl (80-97) H 05/25/20 05:15 MCH 34.0 pg (27.0-33.4) H 05/25/20 05:15 MCHC 34.8 g/dL (32.0-36.0) 05/25/20 05:15 RDW 12.4 % (11.5-14.0) 05/25/20 05:15 Seg Neutrophils % 62.1 % (42-78) 05/23/20 06:27 Chloride 96 mmol/L (98-107) L 05/25/20 05:15 Carbon Dioxide 33 mmol/L (22-30) H 05/25/20 05:15 Anion Gap 5 (5-19) 05/25/20 05:15 Est GFR ( Amer) > 60 (>60) 05/25/20 05:15 Glucose 95 mg/dL (75-110) 05/25/20 05:15 Calcium 9.5 mg/dL (8.4-10.2) 05/25/20 05:15 Phosphorus 3.6 mg/dL (2.5-4.5) 05/23/20 06:27 Magnesium 1.7 mg/dL (1.6-2.3) 05/23/20 06:27 Total Bilirubin 1.0 mg/dL (0.2-1.3) 05/22/20 02:49 AST 42 U/L (14-36) H 05/22/20 02:49 Alkaline Phosphatase 109 U/L (38-126) 05/22/20 02:49 Total Protein 7.7 g/dL (6.3-8.2) 05/22/20 02:49 Albumin 4.6 g/dL (3.5-5.0) 05/22/20 02:49 Urine Color YELLOW 05/22/20 04:56 Urine Appearance CLEAR 05/22/20 04:56 Urine pH 7.0 (5.0-9.0) 05/22/20 04:56 Ur Specific [place] 1.011 05/22/20 04:56 Urine Protein NEGATIVE mg/dL (NEGATIVE) 05/22/20 04:56 Urine Glucose (UA) 50 mg/dL (NEGATIVE) H 05/22/20 04:56 Urine Ketones 20 mg/dL (NEGATIVE) H 05/22/20 04:56 Urine Blood NEGATIVE (NEGATIVE) 05/22/20 04:56 Urine Nitrite NEGATIVE (NEGATIVE) 05/22/20 04:56 Ur Leukocyte Esterase SMALL (NEGATIVE) H 05/22/20 04:56 Urine WBC (Auto) 8 /HPF 05/22/20 04:56 Urine RBC (Auto) 0 /HPF 05/22/20 04:56 05/22/20 05/22/20 05/22/20 02:49 07:56 13:28 Troponin I 0.048 0.108 0.159 05/22/20 20:28 Troponin I 0.124 Current Medication List Generic Name Dose Route Start Last Admin Trade Name Freq PRN Reason Stop Dose Admin Acetaminophen 325 mg 05/22/20 07:04 Acetaminophen 325 Mg Tablet PO 06/21/20 07:03 Q4HP PRN FEVER >101 Albuterol 2 puff 05/23/20 12:00 05/25/20 05:44 Albuterol Sulfate Hfa (90 Mcg/Puff) 8 Gm Mdi IH 06/22/20 11:59 Not Given Q4H SHAE Albuterol/Ipratropium 3 ml 05/23/20 12:00 Ipratropium/Albuterol 0.5-2.5 Mg/3 Ml Ampul NEB 06/22/20 11:59 RTQ6HP SHAE Aspirin 81 mg 05/23/20 10:00 05/24/20 10:02 Aspirin 81 Mg Tablet, Chewable PO 06/22/20 09:59 81 mg DAILY SHAE Administration Atorvastatin Calcium 40 mg 05/22/20 22:00 05/24/20 21:32 Atorvastatin Calcium 40 Mg Tablet PO 06/21/20 21:59 40 mg QHS SHAE Administration Carvedilol 12.5 mg 05/22/20 10:00 05/24/20 21:33 Carvedilol 12.5 Mg Tablet PO 06/21/20 09:59 12.5 mg Q12 SHAE Administration Dextrose 12.5 gm 05/24/20 08:04 Dextrose 50%-Water 25 Gm/50 Ml Disp.Syrin IV 06/23/20 08:03 PRN PRN FOR BG 50-69 IN ALERT PATIENT Protocol Dextrose 25 gm 05/24/20 08:04 Dextrose 50%-Water 25 Gm/50 Ml Disp.Syrin IV 06/23/20 08:03 PRN PRN See Label Comments Protocol Diazepam 10 mg 05/22/20 07:09 Diazepam Inj 10 Mg/2 Ml Disp.Syrin IV 05/29/20 07:08 Q8HP PRN ANXIETY/AGITATION Docusate Sodium 100 mg 05/22/20 10:00 05/24/20 10:03 Docusate Sodium 100 Mg/10 Ml Udc PO 06/21/20 09:59 Not Given DAILY SHAE Famotidine 20 mg 05/22/20 10:00 05/24/20 21:33 Famotidine 20 Mg Tablet PO 06/21/20 09:59 20 mg Q12 SHAE Administration Fluticasone/Vilanterol 1 inh 05/24/20 10:00 05/24/20 10:10 Fluticasone/Umeclidin/Vilanter 100-62.5-25 Mcg/Dose IH 06/23/20 09:59 1 inhaler DAILY SHAE Administration Glucagon 1 mg 05/24/20 08:04 Glucagon,Human Recomb 1 Mg Inj SUBCUT 06/23/20 08:03 PRN PRN Evaluate for BG < 70 Protocol Glucose 15 gm 05/24/20 08:04 Dextrose 40% Gel 15 Gm Tube PO 06/23/20 08:03 PRN PRN For BG 50-69 in Alert Patient Protocol Glucose 30 gm 05/24/20 08:04 Dextrose 40% Gel 15 Gm Tube PO 06/23/20 08:03 PRN PRN FOR BG < 50 IN ALERT PATIENT Protocol Heparin Sodium (Porcine) 5,000 unit 05/22/20 14:00 05/25/20 05:44 Heparin Sod (Porcine) 5,000 Unit/Ml 1 Ml Vial SUBCUT 06/21/20 13:59 5,000 unit Q8 SHAE Administration Levetiracetam 1,000 mg 05/24/20 22:00 05/24/20 21:33 Levetiracetam 500 Mg Tablet PO 06/23/20 21:59 1,000 mg Q12 SHAE Administration Lisinopril 10 mg 05/25/20 10:00 Lisinopril 10 Mg Tablet PO 06/24/20 09:59 DAILY SHAE Lorazepam 1 mg 05/22/20 07:09 Lorazepam Inj 2 Mg/1 Ml Vial IV 05/29/20 07:08 Q4HP PRN ANXIETY/AGITATION Ondansetron HCl 4 mg 05/22/20 07:04 Ondansetron Hcl Inj/Pf 4 Mg/2 Ml Sdv IV 06/21/20 07:03 Q4HP PRN FOR NAUSEA/VOMITING Prednisone 40 mg 05/23/20 12:00 05/24/20 10:02 Prednisone 20 Mg Tablet PO 05/27/20 11:59 40 mg DAILY SHAE Administration Promethazine HCl 6.25 mg 05/22/20 07:04 Promethazine Hcl Inj 25 Mg/1 Ml Vial IV 06/21/20 07:03 Q4HP PRN FOR NAUSEA/VOMITING Discontinued Medications Generic Name Dose Route Start Last Admin Trade Name Freq PRN Reason Stop Dose Admin Albuterol 2 puff 05/23/20 08:48 Albuterol Sulfate Hfa (90 Mcg/Puff) 8 Gm Mdi IH 06/22/20 08:47 Q4HP PRN FOR WHEEZING Albuterol/Ipratropium 3 ml 05/22/20 07:04 Ipratropium/Albuterol 0.5-2.5 Mg/3 Ml Ampul NEB 06/21/20 07:03 RTQ6HP PRN SHORTNESS OF BREATH Aspirin 325 mg 05/22/20 07:45 05/22/20 07:53 Aspirin 325 Mg Tablet PO 05/22/20 07:46 325 mg NOW ONE Administration Heparin Sodium (Porcine) 5,000 unit 05/22/20 14:00 Heparin Sod (Porcine) 5,000 Unit/Ml 1 Ml Vial SUBCUT 06/21/20 13:59 Q8 SHAE Sodium Chloride 1,000 mls @ 0 mls/hr 05/22/20 02:55 05/22/20 05:21 Nacl 0.9% 1000 Ml Iv Soln IV 05/22/20 02:56 Infused BOLUS ONE Infusion Wide Open Sodium Chloride 1,000 mls @ 100 mls/hr 05/22/20 05:40 05/22/20 05:49 Nacl 0.9% 1000 Ml Iv Soln IV 05/22/20 15:39 100 mls/hr BOLUS ONE Administration Potassium Chloride 20 meq/ 1,023 mls @ 80 mls/hr 05/22/20 07:09 05/22/20 23:00 Magnesium Sulfate 8 meq/ IV 05/22/20 19:56 Infused Thiamine HCl 100 mg/ NOW ONE Infusion Multivitamins/Minerals 10 ml/ Sodium Chloride Levetiracetam 1,000 mg in 100 mls @ 400 mls/hr 05/22/20 10:00 05/24/20 10:16 Keppra Rtu 1000 Mg/Nacl-Iso 100 Ml Premix IV 06/21/20 09:59 Infused Q12 SHAE Infusion Influenza Virus Vaccine Quadrival 0.5 ml 05/23/20 08:00 Influenza Quad (6mos+) Vac 0.5 Ml Syr IM 05/23/20 08:01 .ONCE ONE Lisinopril 10 mg 05/22/20 10:00 05/22/20 10:11 Lisinopril 10 Mg Tablet PO 06/21/20 09:59 10 mg DAILY SHAE Administration Lisinopril 5 mg 05/23/20 10:00 05/24/20 10:02 Lisinopril 10 Mg Tablet PO 06/22/20 09:59 5 mg DAILY SHAE Administration Status: Imported from PACS Assessment & Plan - Diagnosis (1) Elevated troponin Is this a current diagnosis for this admission?: Yes Plan: The patient denies any history of coronary artery disease in the past and c ontinues to deny ischemic symptoms. Her troponin peaked at 0.159 and is now downtrending. Her echocardiogram on 05/22/2020 did not reveal any regional wall motion abnormalities and has a normal ejection fraction. I do not believe her elevated troponin is from an acute coronary syndrome but supply demand mismatch and uncontrolled hypertension particularly when she came to the emergency room. She continues to be hemodynamically and electrically stable. Her exercise MPS today, although submaximal, was normal. Recommendations: -Avoid BB therapy. -F/U in my office as scheduled. (2) Hyponatremia Is this a current diagnosis for this admission?: Yes Plan: Improved. Further management per hospitalist team. (3) Syncope Qualifiers: Syncope type: unspecified Qualified Code(s): R55 - Syncope and collapse Is this a current diagnosis for this admission?: Yes Plan: Unclear etiology however her telemetry has shown no significant dysrhythmias. Recommendations: -Event monitor upon discharge. -Follow-up with our office upon discharge. (4) Junctional (isa) bradycardia Is this a current diagnosis for this admission?: Yes Plan: The patient has developed more frequent episodes of junctional rhythm however has remained hemodynamically stable and asymptomatic. It may be related to her BB use while in the hospital which I have discontinued as of this morning. She will require further cardiology follow up which I will arrange for. Recommendations: -Avoid AV isa agents such as BB, antiarrhythmics with BB properties, non-dihy dropyridine calcium channel blockers. -Outpatient rhythm monitor. -F/U with me on JUN 18.
[2020-05-25] MEDS: ASPIRIN 81 MG TABLET, CHEWABLE PO SCH (11:16)
[2020-05-25] MEDS: FAMOTIDINE 20 MG TABLET PO SCH (11:17)
[2020-05-25] MEDS: LEVETIRACETAM 500 MG TABLET PO SCH (11:17)
[2020-05-25] MEDS: DOCUSATE SODIUM 100 MG/10 ML UDC PO SCH (11:17)
[2020-05-25] MEDS: FLUTICASONE/UMECLIDIN/VILANTER 100-62.5-25 MCG/DOSE IH SCH (11:18)
[2020-05-25] MEDS: PREDNISONE 20 MG TABLET PO SCH (11:18)
[2020-05-25 12:40] VITALS: BP 168/73
--- NOTE | 2020-05-25 12:42 | EKG REPORT ---
SEVERITY:- OTHERWISE NORMAL ECG - SINUS RHYTHM ATRIAL PREMATURE COMPLEX : Confirmed by: Stephane Vázquez MD 25-May-2020 12:41:39
--- NOTE | 2020-05-25 12:42 | EKG REPORT ---
SEVERITY:- ABNORMAL ECG - SINUS BRADYCARDIA : Confirmed by: Stephane Vázquez MD 25-May-2020 12:41:31
--- NOTE | 2020-05-26 06:55 | PDOC DISCHARGE SUMMARY ---
Impression - Admit/DC Date/PCP Admission Date/Primary Care Provider: 05/22/20 07:04 NATE CARDENAS PA-C Discharge Date: 05/25/20 - Discharge Diagnosis (1) COPD (chronic obstructive pulmonary disease) Is this a current diagnosis for this admission?: Yes (2) Seizure Is this a current diagnosis for this admission?: Yes (3) Hyponatremia Is this a current diagnosis for this admission?: Yes (4) Elevated troponin Is this a current diagnosis for this admission?: Yes (5) ETOH abuse Is this a current diagnosis for this admission?: Yes (6) Hypertension Is this a current diagnosis for this admission?: Yes (7) Junctional (isa) bradycardia Is this a current diagnosis for this admission?: Yes - Assessment Summary: Continue to monitor sodium. Stress test Monday prior to discharge. - Additional Information Discharge Diet: Regular Discharge Activity: Activity As Tolerated Referrals: NATE CARDENAS PA-C [Primary Care Provider] - 05/28/20 3:00 pm SAMPLE,NICKI Coleman DO [NO LOCAL MD] - 06/02/20 11:00 am Prescriptions: Prednisone [Deltasone 20 mg Tablet] 40 mg PO DAILY #2 tablet Levetiracetam [Keppra 500 mg Tablet] 500 mg PO Q12 #60 tablet Atorvastatin Calcium [Lipitor 40 mg Tablet] 40 mg PO QHS #30 tablet Lisinopril [Prinivil 10 mg Tablet] 10 mg PO DAILY #30 tablet Home Medications: Aspirin [Ecotrin 81 mg EC Tablet] 81 mg PO DAILY 05/22/20 Multivitamin [Tab-A-Tevin (Multiple Vitamin) Tablet] 1 tab PO DAILY 05/22/20 Albuterol Sulfate [Ventolin Hfa 8 gm Mdi] 2 puff IH Q4H inhaler 05/25/20 Atorvastatin Calcium [Lipitor 40 mg Tablet] 40 mg PO QHS #30 tablet 05/25/20 Fluticasone/Umeclidin/Vilanter [Trelegy 100-62.5-25 Mcg Ellipta 14 Dose/Dpi] 1 inh IH DAILY inhaler 05/25/20 Levetiracetam [Keppra 500 mg Tablet] 500 mg PO Q12 #60 tablet 05/25/20 Lisinopril [Prinivil 10 mg Tablet] 10 mg PO DAILY #30 tablet 05/25/20 Prednisone [Deltasone 20 mg Tablet] 40 mg PO DAILY #2 tablet 05/25/20 History of Present Illiness History of Present Illness: as per admitting provider "KAIA APPLE is a 64 year old female past medical history of untreated hypertension, EtOH abuse, brought to ED after witnessed tonic-clonic seizure by family. Patient son who is present at the room stating that patient was sleeping and when she woke up and was trying to get off the bed she suddenly collapsed and had tonic-clonic seizure which lasted about 2 to 3 minutes witnessed by his daughter who was in the room, after seizure patient was was unresponsive about 20 to 30 minutes, EMS and initial impression was that patient may have had a stroke, after EMS arrival patient came back to but was noted to be confused till arrival to the hospital. On my encounter patient is resting in bed comfortably awake and alert x3, stating that she does not recall anything that had happened prior to coming to the hospital, stating that she does not have any history of seizure disorder however 3 years ago she had one episode of seizure for which she came to [facility] and was discharged home without any medications, she is also saying that she has history of hypertension but does not take any medication. As per son who is present in the room patient is a heavy drinker and drinks multiple bottles of beer daily along with wine, as per son patient does not eat or drink much except for excessive drinking. Patient is complaining of mild chest congestion otherwise denies any headache, vision changes, weakness, numbness, tingling, headache, nausea, fever, chills, diarrhea, constipation or any urinary symptoms." Hospital Course Hospital Course: (1) COPD (chronic obstructive pulmonary disease) Improving. Continue current therapy. Previously diagnosed, though never treated. >40yr history cigarette use. Quit smoking 10 days ago. CXR: findings consistent with COPD. CAT score 25 mMRC breathlessness scale 3 Has never been treated for exacerbation in past. Scheduled breathing treatments, incentive spirometry and flutter valve. Prednisone 40mg x5 days. Abx not indicated at this time. Plan to dc home with PARMINDER prn, LAMA+LABA once daily. - F/u PCP, outpatient pulm, may benefit from pulmonary rehab (2) Seizure It is unclear if this was seizure activity or syncopal episode. Without seizure activity since admission. Likely due to EtOH induced hyponatremia. Hx single seizure 3 years ago, denied pharmacological tx previous Hx heavy alcohol abuse and drinks multiple beer bottles with wine daily. CT head negative for any acute abnormalities. Chest x-ray negative for any acute abnormalities. Cnt Keppra 500 mg p.o. twice daily. Cnt to correct hyponatermia. Cardiology is on board, discussed case, note reviewed in detail. -On telemetry, without noted arrhythmias -Recommends outpatient follow-up (3) Hyponatremia Improved. 134. Likely beer proteinemia. History of excessive EtOH abuse. Cnt BMP daily. (4) Elevated troponin Peaked, plateaued, stable. 0.048, 0.108, 0.159, 0.124 Denies any anginal symptoms or any history of CAD. Likely secondary to supply demand mismatch match and uncontrolled hypertension. Echo 05/22: Without wall motion abnormalities. Ejection fraction 65-70%. Grade I diastolic dysfunction, mild pulm HTN. Cardiology consulted, agreed to see patient, discussed case, note reviewed in detail. - Stress test normal. - F/u outpatient setting - Avoid beta blockers (5) ETOH abuse Most recent CIWA 1. Cnt to monitor. Patient has history of heavy alcohol abuse and drinks multiple beer bottles with wine daily. Patient has had a seizure episode 3 years ago which may have been also due to EtOH abuse. Admit to IMCU, seizure, fall and aspiration precautions, DT protocol. (6) Hypertension BP within acceptable range. History of untreated hypertension. Continue lisinopril. Avoid diuretics to prevent electrolyte abnormalities. Physical Exam Vital Signs: Temp Pulse Resp BP Pulse Ox 98.2 F 60 16 168/73 H 99 05/25/20 14:00 05/25/20 14:00 05/25/20 14:00 05/25/20 11:41 05/25/20 14:00 Intake & Output 05/24/20 05/25/20 05/26/20 06:59 06:59 06:59 Intake Total 1130 850 357 Balance 1130 850 357 Weight 50 kg Additional comments: General appearance: PRESENT: no acute distress, cooperative, well-developed Head exam: PRESENT: atraumatic, normocephalic Eye exam: PRESENT: EOMI. ABSENT: scleral icterus Mouth exam: PRESENT: moist Neck exam: PRESENT: full ROM. ABSENT: JVD Respiratory exam: PRESENT: clear to auscultation nisa, symmetrical. ABSENT: wheezes Cardiovascular exam: PRESENT: RRR GI/Abdominal exam: PRESENT: soft. ABSENT: tenderness Extremities exam: PRESENT: full ROM. ABSENT: pedal edema Musculoskeletal exam: PRESENT: ambulatory, full ROM. ABSENT: deformity Neurological exam: PRESENT: alert, awake, oriented to person, oriented to place, oriented to time, oriented to situation Psychiatric exam: PRESENT: appropriate affect, normal mood Skin exam: PRESENT: dry, intact, warm Results Laboratory Results: WBC 6.4 10^3/uL (4.0-10.5) 05/25/20 05:15 RBC 3.56 10^6/uL (3.72-5.28) L 05/25/20 05:15 Hgb 12.1 g/dL (12.0-15.5) 05/25/20 05:15 Hct 34.9 % (36.0-47.0) L 05/25/20 05:15 MCV 98 fl (80-97) H 05/25/20 05:15 MCH 34.0 pg (27.0-33.4) H 05/25/20 05:15 MCHC 34.8 g/dL (32.0-36.0) 05/25/20 05:15 RDW 12.4 % (11.5-14.0) 05/25/20 05:15 Plt Count 228 10^3/uL (150-450) 05/25/20 05:15 Lymph % (Auto) 24.6 % (13-45) 05/23/20 06:27 [place] % (Auto) 10.6 % (3-13) 05/23/20 06:27 Eos % (Auto) 1.4 % (0-6) 05/23/20 06:27 Baso % (Auto) 1.3 % (0-2) 05/23/20 06:27 Absolute Neuts (auto) 3.2 10^3/uL (1.7-8.2) 05/23/20 06:27 Absolute Lymphs (auto) 1.2 10^3/uL (0.5-4.7) 05/23/20 06:27 Absolute Monos (auto) 0.5 10^3/uL (0.1-1.4) 05/23/20 06:27 Absolute Eos (auto) 0.1 10^3/uL (0.0-0.6) 05/23/20 06:27 Absolute Basos (auto) 0.1 10^3/uL (0.0-0.2) 05/23/20 06:27 Seg Neutrophils % 62.1 % (42-78) 05/23/20 06:27 Sodium 134.0 mmol/L (137-145) L 05/25/20 05:15 Potassium 3.7 mmol/L (3.6-5.0) 05/25/20 05:15 Chloride 96 mmol/L (98-107) L 05/25/20 05:15 Carbon Dioxide 33 mmol/L (22-30) H 05/25/20 05:15 Anion Gap 5 (5-19) 05/25/20 05:15 BUN 4 mg/dL (7-20) L 05/25/20 05:15 Creatinine 0.49 mg/dL (0.52-1.25) L 05/25/20 05:15 Est GFR ( Amer) > 60 (>60) 05/25/20 05:15 Est GFR (MDRD) Non-Af > 60 (>60) 05/25/20 05:15 Glucose 95 mg/dL (75-110) 05/25/20 05:15 POC Glucose 154 mg/dL (70-110) H 05/22/20 02:52 Calcium 9.5 mg/dL (8.4-10.2) 05/25/20 05:15 Phosphorus 3.6 mg/dL (2.5-4.5) 05/23/20 06:27 Magnesium 1.7 mg/dL (1.6-2.3) 05/23/20 06:27 Total Bilirubin 1.0 mg/dL (0.2-1.3) 05/22/20 02:49 Direct Bilirubin 0.1 mg/dL (0.0-0.4) 05/22/20 02:49 Neonat Total Bilirubin Not Reportable 05/22/20 02:49 Neonat Direct Bilirubin Not Reportable 05/22/20 02:49 Neonat Indirect Bili Not Reportable 05/22/20 02:49 AST 42 U/L (14-36) H 05/22/20 02:49 ALT 17 U/L (<35) 05/22/20 02:49 Alkaline Phosphatase 109 U/L (38-126) 05/22/20 02:49 Troponin I 0.124 ng/mL 05/22/20 20:28 Total Protein 7.7 g/dL (6.3-8.2) 05/22/20 02:49 Albumin 4.6 g/dL (3.5-5.0) 05/22/20 02:49 Urine Color YELLOW 05/22/20 04:56 Urine Appearance CLEAR 05/22/20 04:56 Urine pH 7.0 (5.0-9.0) 05/22/20 04:56 Ur Specific Gary 1.011 05/22/20 04:56 Urine Protein NEGATIVE mg/dL (NEGATIVE) 05/22/20 04:56 Urine Glucose (UA) 50 mg/dL (NEGATIVE) H 05/22/20 04:56 Urine Ketones 20 mg/dL (NEGATIVE) H 05/22/20 04:56 Urine Blood NEGATIVE (NEGATIVE) 05/22/20 04:56 Urine Nitrite NEGATIVE (NEGATIVE) 05/22/20 04:56 Urine Bilirubin NEGATIVE (NEGATIVE) 05/22/20 04:56 Urine Urobilinogen NEGATIVE mg/dL (<2.0) 05/22/20 04:56 Ur Leukocyte Esterase SMALL (NEGATIVE) H 05/22/20 04:56 Urine WBC (Auto) 8 /HPF 05/22/20 04:56 Urine RBC (Auto) 0 /HPF 05/22/20 04:56 Squamous Epi Cells Auto 3 /HPF 05/22/20 04:56 Urine Mucus (Auto) RARE /LPF 05/22/20 04:56 Urine Ascorbic Acid NEGATIVE (NEGATIVE) 05/22/20 04:56 Urine Opiates Screen NEGATIVE 05/22/20 04:56 Urine Methadone Screen NEGATIVE 05/22/20 04:56 Ur Barbiturates Screen NEGATIVE 05/22/20 04:56 Ur Phencyclidine Scrn NEGATIVE 05/22/20 04:56 Ur Amphetamines Screen NEGATIVE 05/22/20 04:56 U Benzodiazepines Scrn NEGATIVE 05/22/20 04:56 Urine Cocaine Screen NEGATIVE 05/22/20 04:56 U Marijuana (THC) Screen NEGATIVE 05/22/20 04:56 Serum Alcohol < 10 mg/dL (NONE DETECTED) 05/22/20 02:49 05/22/20 05/22/20 05/22/20 02:49 07:56 13:28 Troponin I 0.048 0.108 0.159 05/22/20 20:28 Troponin I 0.124 Impressions: Cervical Spine CT 05/22/20 02:57 IMPRESSION: 1. No evidence of acute osseous injury involving the cervical spine. 2. Degenerative changes of the cervical spine at C5-C6 as described above, similar when compared to the prior study. 3. Old healed fracture of the C4 vertebra and spinous process. 4. Centrilobular emphysematous changes in the lung apices and chronic pleural parenchymal scarring in the left lung apex Chest X-Ray 05/22/20 02:57 IMPRESSION: COPD. Lungs are clear copyright 2010 [employer]- All Rights Reserved Head CT 05/22/20 02:57 IMPRESSION: No acute intracranial abnormality TECHNICAL DOCUMENTATION: Quality ID # 436: Final reports with documentation of one or more dose reduction techniques (e.g., Automated exposure control, adjustment of the mA and/or kV according to patient size, use of iterative reconstruction technique) copyright 2010 [employer]- All Rights Reserved Plan Plan of Treatment: 1. Seizure-like activity: Keppra 500 mg twice daily. 2. Hyponatremia, or low sodium: we just restricted the amount of fluids that you got and this corrected on its own. 3. Elevated heart enzymes (elevated troponin): Your stress test was normal. Dr. Rios has arranged for you to follow-up at his office on June 04, 2020. 4. High blood pressure: lisinopril 10 mg that you are to take daily. 5. Atorvastatin 40 mg taken every night. 5. COPD exacerbation: Trelegy-Ellipta, use once daily, and an albuterol inhaler, use as needed. incentive spirometer. Flutter valve. 40 mg prednisone daily for 2 days. Time Spent: Greater than 30 Minutes Stroke Is this a Stroke Patient?: No Acute Heart Failure Is this a Heart Failure Patient?: No
== END 2020-05-25 15:26 | disposition home or self-care (01) | DRG 641 ==
LOC: ER 02:46 → EH 06:56 → OBSVTOIN 07:04 → 3S 14:38
PROVIDERS: ADMIT Internal Medicine; ATTEND Physician Assistant
PROC: B24BZZ4 Ultrasonography of Heart with Aorta, Transesophageal (ICD-10-PCS; principal; 2020-05-25)
PROC: 3E02340 Introduction of Influenza Vaccine into Muscle, Percutaneous Approach (ICD-10-PCS; 2020-05-25)
DX: E87.1 Hypo-osmolality and hyponatremia (principal); J44.1 Chronic obstructive pulmonary disease with (acute) exacerbation; I10 Essential (primary) hypertension; R77.8 Other specified abnormalities of plasma proteins; F10.10 Alcohol abuse, uncomplicated; I49.8 Other specified cardiac arrhythmias; I27.20 Pulmonary hypertension, unspecified; W19.XXXA Unspecified fall, initial encounter; K21.9 Gastro-esophageal reflux disease without esophagitis; G40.409 Other generalized epilepsy and epileptic syndromes, not intractable, without status epilepticus; Z23 Encounter for immunization; Z79.82 Long term (current) use of aspirin; Z87.891 Personal history of nicotine dependence
CPT/HCPCS: 36415; 70450; 71045; 72125; 78452; 80048; 80053; 80307; 81001; 82962; 83735; 84100; 84484; 85025; 85027; 90471; 90686; 93005; 93010; 93017; 93306; 94667; 94799; 96360; 96361; 99285; A9500; G0008; J1644; J1953; J3411; J3475; J3480; J3490; J7030; J7512; Q9969

== ENCOUNTER 2020-06-23 10:49 | Observation (INO) | payer BC ==
--- NOTE | 2020-06-23 11:33 | RADIOLOGY REPORT (SQ) ---
EXAM DESCRIPTION: CHEST SINGLE VIEW IMAGES COMPLETED DATE/TIME: 06/23/2020 11:17 am REASON FOR STUDY: bed 9 difficulty breathing COMPARISON: 05/22/2020. NUMBER OF VIEWS: One view. TECHNIQUE: Single frontal radiographic view of the chest acquired. LIMITATIONS: None. FINDINGS: LUNGS AND PLEURA: Indistinct density in the lower left chest adjacent to the cardiac borde r. No pleural effusion. Attenuated blood vessels and flattened abad-diaphragms. MEDIASTINUM AND HILAR STRUCTURES: No masses. Contour normal. HEART AND VASCULAR STRUCTURES: Heart normal in size. Normal vasculature. BONES: No acute findings. HARDWARE: None in the chest. OTHER: No other significant finding. IMPRESSION: COPD. INDISTINCT DENSITY IN THE LEFT LUNG, POSSIBLE INFILTRATE. TECHNICAL DOCUMENTATION: JOB ID: [id number] [employer]- All Rights Reserved Reading location - IP/workstation name: [email or web address]
[2020-06-23 11:47] LABS: ABSOLUTE BASOPHILS # (AUTO) 0.1 10^3/uL (0.0-0.2); ABSOLUTE EOSINOPHILS # (AUTO) 0.6 10^3/uL (0.0-0.6); ABSOLUTE LYMPHOCYTES (AUTO) 3.1 10^3/uL (0.5-4.7); ABSOLUTE NEUT (AUTO) 2.9 10^3/uL (1.7-8.2); EOSINOPHILS % (AUTO) 7.7 % (0-6); HEMATOCRIT 38.1 % (36.0-47.0); HEMOGLOBIN 13.1 g/dL (12.0-15.5); LYMPHOCYTES % (AUTO) 40.8 % (13-45); MEAN CORPUSCULAR HEMOGLOBIN 33.4 pg (27.0-33.4); MEAN CORPUSCULAR HGB CONC 34.3 g/dL (32.0-36.0); MEAN CORPUSCULAR VOLUME 97 fl (80-97); MONOCYTES % (AUTO) 12.8 % (3-13); PLATELET COUNT 341 10^3/uL (150-450); RED BLOOD COUNT 3.91 10^6/uL (3.72-5.28); RED CELL DISTRIBUTION WIDTH 12.8 % (11.5-14.0); SEGMENTED NEUTROPHILS % (AUTO) 37.7 % (42-78); TOTAL CELLS COUNTED % (AUTO) 100 %; VENOUS BLOOD BASE EXCESS -4.7 mmol/L; VENOUS BLOOD HCO3 25.4 mmol/L (20-32); WHITE BLOOD COUNT 7.7 10^3/uL (4.0-10.5)
[2020-06-23 11:53] LABS: VENOUS BLOOD PH 7.17 (7.30-7.42)
[2020-06-23 12:00] LABS: INTERNATIONAL RATION (INR) 0.92; PROTHROMBIN TIME 12.5 SEC (11.4-15.4)
[2020-06-23 12:06] LABS: ALBUMIN 4.5 g/dL (3.5-5.0); ALKALINE PHOSPHATASE 112 U/L (38-126); ANION GAP 7 (5-19); ASPARTATE AMINO TRANSFERASE 28 U/L (14-36); BILIRUBIN,DIRECT 0.1 mg/dL (0.0-0.4); BILIRUBIN,TOTAL 0.4 mg/dL (0.2-1.3); BLOOD UREA NITROGEN 9 mg/dL (7-20); CALCIUM 9.5 mg/dL (8.4-10.2); CARBON DIOXIDE 28 mmol/L (22-30); CHLORIDE 98 mmol/L (98-107); GLUCOSE 138 mg/dL (75-110); POTASSIUM 4.3 mmol/L (3.6-5.0); TOTAL PROTEIN 7.5 g/dL (6.3-8.2)
[2020-06-23] MEDS ORDERED: PIPERACILLIN/TAZOBACTAM 3.375 GM VIAL IV ONE (13:37)
[2020-06-23] MEDS ORDERED: METHYLPREDNISOLONE INJ 125 MG/2 ML SDV IV ONE (13:38)
[2020-06-23] MEDS ORDERED: IPRATROPIUM/ALBUTEROL 0.5-2.5 MG/3 ML AMPUL NEB ONE (13:39)
[2020-06-23] MEDS ORDERED: LEVOFLOXACIN 750 MG/D5W RTU 750 MG/150 ML RTUPB IV ONE (13:41)
[2020-06-23] MEDS ORDERED: ACETAMINOPHEN 325 MG TABLET PO ONE (16:53)
[2020-06-23 17:28] LABS: ARTERIAL BLOOD BASE EXCESS 0 mmol/L; ARTERIAL BLOOD FIO2 35%; ARTERIAL BLOOD H2CO3 1.38 mmol/L (1.05-1.35); ARTERIAL BLOOD HCO3 25.8 mmol/L (20-24); ARTERIAL BLOOD O2 SATURATION 98.2 % (94-98); ARTERIAL BLOOD PCO2 45.9 mmHg (35-45); ARTERIAL BLOOD PH 7.37 (7.35-7.45); ARTERIAL BLOOD PO2 120.2 mmHg (80-100); ARTERIAL BLOOD TOTAL CO2 27.2 mmol/L (21-25)
[2020-06-23] MEDS ORDERED: IPRATROPIUM/ALBUTEROL 0.5-2.5 MG/3 ML AMPUL NEB PRN (17:52)
[2020-06-23] MEDS ORDERED: ONDANSETRON 4 MG TAB.RAPDIS PO PRN (17:52)
[2020-06-23] MEDS ORDERED: ONDANSETRON HCL INJ/PF 4 MG/2 ML SDV IV PRN (17:52)
[2020-06-23] MEDS ORDERED: ACETAMINOPHEN 325 MG TABLET PO PRN (17:52)
--- NOTE | 2020-06-23 17:52 | ER Document Report ---
ED General - General Chief Complaint: Shortness Of Breath Stated Complaint: SHORTNESS OF BREATH Time Seen by Provider: 06/23/20 12:05 Primary Care Provider: NATE CARDENAS PA-C [Primary Care Provider] - Follow up as needed Mode of Arrival: Ambulatory Information source: Patient TRAVEL OUTSIDE OF THE [place] IN LAST 30 DAYS: No - HPI Notes: Patient presents with severe shortness of breath for 1 to 2 days. She states she had an increased cough with some congestion. Some generalized body aches. She states she was recently in the hospital for seizure several weeks ago. She states since that time she has not been exposed to the Covid virus that she knows of. She states that she has only been in her house and to the doctor's office. She states she has had no alcohol or tobacco since being discharged from the hospital. Her cough has been productive of yellow sputum. Her shortness of breath is been constant and severe. Is worse with exertion and better with rest. She is not on any home oxygen. - Related Data Allergies/Adverse Reactions: No Known Allergies Allergy (Verified 06/23/20 11:23) Home Medications: levetiracetam. atorvastatin. ]lisinopril. albuterol. asa Past Medical History - General Information source: Patient - Social History Smoking Status: Former Smoker Chew tobacco use (# tins/day): No Frequency of alcohol use: None Drug Abuse: None Family History: Reviewed & Not Pertinent Patient has homicidal ideation: No - Past Medical History Cardiac Medical History: Reports: Hx Hypertension Denies: Hx Coronary Artery Disease, Hx Heart Attack, Hx Pulmonary Embolism Pulmonary Medical History: Reports: Hx Bronchitis, Hx Pneumonia - hospitalized approx 7 years ago Denies: Hx Asthma, Hx COPD, Hx Respiratory Failure, Hx Sleep Apnea, Hx Tuberculosis Neurological Medical History: Denies: Hx Cerebrovascular Accident, Hx Seizures Renal/ Medical History: Denies: Hx End Stage Renal Disease, Hx Kidney Stones, Hx Peritoneal Dialysis Malignancy Medical History: Denies: Hx Leukemia, Hx Lung Cancer GI Medical History: Reports: Hx Gastroesophageal Reflux Disease - OTC Tums prn. 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 Denies: Hx Bowel Surgery, Hx Cholecystectomy, Hx Colostomy, Hx Coronary Artery Bypass Graft, Hx Gastric Bypass Surgery, Hx Herniorrhaphy, Hx Hysterectomy, Hx Mastectomy, Hx Pacemaker, Hx Tonsillectomy, Hx Tubal Ligation - Immunizations Hx Diphtheria, Pertussis, Tetanus Vaccination: Yes Review of Systems - Review of Systems Constitutional: Malaise, Weakness Cardiovascular: denies: Chest pain, Palpitations Respiratory: Cough, Short of breath -: Yes All other systems reviewed and negative Physical Exam - Vital signs Vitals: Temp Resp Pulse Ox 98.1 F 22 H 77 L 06/23/20 11:02 06/23/20 11:02 06/23/20 11:02 Interpretation: Hypoxic, Tachypneic - General General appearance: Alert, Anxious In distress: Mild - HEENT Head: Normocephalic, Atraumatic Eyes: Normal Pupils: PERRL - Respiratory Respiratory status: Respiratory distress Chest status: Nontender Breath sounds: Decreased air movement, Rhonchi Chest palpation: Normal - Cardiovascular Rhythm: Tachycardia Heart sounds: Normal auscultation Murmur: No - Abdominal Inspection: Normal Distension: No distension Bowel sounds: Normal Tenderness: Nontender Organomegaly: No organomegaly - Back Back: Normal, Nontender - Extremities General upper extremity: Normal inspection, Nontender, Normal color, Normal ROM, Normal temperature General lower extremity: Normal inspection, Nontender, Normal color, Normal ROM, Normal temperature, Normal weight bearing. No: Liss's sign - Neurological Neuro grossly intact: Yes Cognition: Normal Orientation: AAOx4 Barry Coma Scale Eye Opening: Spontaneous Yue Coma Scale Verbal: Oriented Yue Coma Scale Motor: Obeys Commands Yue Coma Scale Total: 15 Speech: Normal Motor strength normal: LUE, RUE, LLE, RLE Sensory: Normal - Psychological Associated symptoms: Normal affect, Normal mood - Skin Skin Temperature: Warm Skin Moisture: Dry Skin Color: Normal Course - Re-evaluation Re-evalutation: 06/23/20 17:50 Patient with history of COPD. She presents with severe shortness of breath. Chest x-ray shows no evidence of pneumonia. She does have changes consistent with emphysema. She is Covid negative. Patient initially presented in mild to moderate respiratory distress with significantly elevated CO2, decreased oxygen saturations and a decreased pH. She has had a significant improvement with 2 hours of BiPAP. She is also been treated with steroids and antibiotics. I have discussed the case with the hospitalist for admission. - Vital Signs Vital signs: Temp Pulse Resp BP Pulse Ox 98.1 F 18 135/71 H 100 06/23/20 11:23 06/23/20 16:01 06/23/20 16:01 06/23/20 16:01 - Laboratory Results Result Diagrams: 06/23/20 11:15 06/23/20 11:15 Laboratory Results Interpreted: 06/23/20 06/23/20 06/23/20 11:15 11:15 11:15 Eos % (Auto) 7.7 H Seg Neutrophils % 37.7 L Carbonic Acid ABG pCO2 ABG pO2 ABG HCO3 ABG Total CO2 ABG O2 Saturation VBG pH 7.17 L* VBG pCO2 71.0 H* Sodium 133.0 L Creatinine 0.41 L Glucose 138 H Lactic Acid 06/23/20 06/23/20 11:15 16:55 Eos % (Auto) Seg Neutrophils % Carbonic Acid 1.38 H ABG pCO2 45.9 H ABG pO2 120.2 H ABG HCO3 25.8 H ABG Total CO2 27.2 H ABG O2 Saturation 98.2 H VBG pH VBG pCO2 Sodium Creatinine Glucose Lactic Acid 0.6 L Critical Laboratory Results Reviewed: Yes Attending or Supervising Physician who Reviewed Labs: RAND ZHANG - Radiology Results Critical Radiology Results Reviewed: No Critical Results - EKG Interpretation by Wy EKG shows normal: Sinus rhythm Rate: Tachycardia - 119 Rhythm: NSR [place]/QRS: No: Right axis deviation, Left axis deviation Critical Care Note - Critical Care Note Total time excluding time spent on procedures (mins): 60 Comments: This patient presented with hypoxic hypercapnic respiratory failure. Approximately 60 minutes of critical care time were spent on the patient. This included multiple reassessments. It included talking to multiple consultants. It included reviewing laboratory values. And included reviewing radiological imaging. Discharge - Discharge Clinical Impression: Acute respiratory failure Qualifiers: Respiratory failure complication: hypoxia and hypercapnia Qualified Code(s): J96.01 - Acute respiratory failure with hypoxia; J96.02 - Acute respiratory failure with hypercapnia Condition: Serious Disposition: ADMITTED INPATIENT Admitting Provider: Julieth (Hospitalist) Unit Admitted: IMCU Referrals: NATE CARDENAS PA-C [Primary Care Provider] - Follow up as needed
--- NOTE | 2020-06-23 17:56 | PDOC CRITICAL CARE PROG REPORT ---
General Date:: 06/23/20 Resuscitation Status: Full Code Review of systems relevant to events:: Pulmonary Reason for ICU Addmission:: Evaluation - Medications: Medications reviewed and adjusted accordingly: Yes Vasopressors:: None Sedation:: None Physical Exam Vital Signs: Temp Pulse Resp BP Pulse Ox 98.1 F 18 135/71 H 100 06/23/20 11:23 06/23/20 16:01 06/23/20 16:01 06/23/20 16:01 Intake & Output 06/22/20 06/23/20 06/24/20 06:59 06:59 06:59 Intake Total 150 Balance 150 Weight 49.668 kg Weight/Height Weight 49.668 kg Height 5 ft 7 in General appearance: PRESENT: no acute distress, cooperative, thin Head exam: PRESENT: atraumatic, normocephalic Eye exam: PRESENT: conjunctiva pink, EOMI, PERRLA. ABSENT: scleral icterus Ear exam: PRESENT: normal external ear exam Mouth exam: PRESENT: moist, tongue midline Respiratory exam: PRESENT: clear to auscultation nisa, decreased breath sounds. ABSENT: rales, rhonchi, wheezes Cardiovascular exam: PRESENT: RRR. ABSENT: diastolic murmur, rubs, systolic murmur GI/Abdominal exam: PRESENT: normal bowel sounds, soft. ABSENT: distended, guarding, mass, organolmegaly, rebound, tenderness Rectal exam: PRESENT: deferred Extremities exam: PRESENT: full ROM. ABSENT: calf tenderness, clubbing, pedal edema Musculoskeletal exam: PRESENT: normal inspection Neurological exam: PRESENT: alert, awake, oriented to person, oriented to place, oriented to time, oriented to situation, CN II-XII grossly intact. ABSENT: motor sensory deficit Psychiatric exam: PRESENT: anxious, appropriate affect, normal mood. ABSENT: homicidal ideation, suicidal ideation Skin exam: PRESENT: dry, intact, warm. ABSENT: cyanosis, rash Tubes/Lines: PRESENT: Other - Bipap Laboratory/Radiographs Laboratory Results: 06/23/20 11:15 06/23/20 11:15 06/23/20 06/23/20 06/23/20 11:15 11:15 11:15 WBC 7.7 RBC 3.91 Hgb 13.1 Hct 38.1 MCV 97 MCH 33.4 MCHC 34.3 RDW 12.8 Plt Count 341 Seg Neutrophils % 37.7 L Carbonic Acid HCO3/H2CO3 Ratio ABG pH ABG pCO2 ABG pO2 ABG HCO3 ABG O2 Saturation ABG Base Excess VBG pH 7.17 L* VBG pCO2 71.0 H* VBG HCO3 25.4 VBG Base Excess -4.7 FiO2 Sodium 133.0 L Potassium 4.3 Chloride 98 Carbon Dioxide 28 Anion Gap 7 BUN 9 Creatinine 0.41 L Est GFR ( Amer) > 60 Glucose 138 H Lactic Acid Calcium 9.5 Total Bilirubin 0.4 AST 28 Alkaline Phosphatase 112 Total Protein 7.5 Albumin 4.5 06/23/20 06/23/20 06/23/20 11:15 15:20 16:39 WBC RBC Hgb Hct MCV MCH MCHC RDW Plt Count Seg Neutrophils % Carbonic Acid HCO3/H2CO3 Ratio ABG pH ABG pCO2 ABG pO2 ABG HCO3 ABG O2 Saturation ABG Base Excess VBG pH VBG pCO2 VBG HCO3 VBG Base Excess FiO2 Sodium Potassium Chloride Carbon Dioxide Anion Gap BUN Creatinine Est GFR ( Amer) Glucose Lactic Acid 0.6 L 0.9 1.4 Calcium Total Bilirubin AST Alkaline Phosphatase Total Protein Albumin 06/23/20 16:55 WBC RBC Hgb Hct MCV MCH MCHC RDW Plt Count Seg Neutrophils % Carbonic Acid 1.38 H HCO3/H2CO3 Ratio 18:1 ABG pH 7.37 ABG pCO2 45.9 H ABG pO2 120.2 H ABG HCO3 25.8 H ABG O2 Saturation 98.2 H ABG Base Excess 0 VBG pH VBG pCO2 VBG HCO3 VBG Base Excess FiO2 35% Sodium Potassium Chloride Carbon Dioxide Anion Gap BUN Creatinine Est GFR ( Amer) Glucose Lactic Acid Calcium Total Bilirubin AST Alkaline Phosphatase Total Protein Albumin 06/23/20 11:15 Troponin I 0.021 Impressions: Chest X-Ray 06/23/20 11:04 IMPRESSION: COPD. INDISTINCT DENSITY IN THE LEFT LUNG, POSSIBLE INFILTRATE. EKG: ST All labs, radiographs, diagnostic studies and EKGs were personally reviewed: Yes In addition, reports of radiographic and diagnostic studies were read: Yes Assessment and Plan - Diagnosis (1) COPD exacerbation Is this a current diagnosis for this admission?: Yes Plan: She is not wheezing. Her lungs feel 'tight' consistent with COPD exacerbation. She has received steroids. Her initial VBG showed a pH 7.17. However oc biap for 2 hours and her ABG shows a pH 7.37, PCO2 45, pO2 120. She is awake and talking. Does not need the ICU. (2) Anxiety Is this a current diagnosis for this admission?: Yes Plan: She admits she has been anxious and this may have triggered exacerbation. Her father last week and this she believes triggered anxiety which triggered COPD Plan Summary: Routine COPD care, I do not anticipate a long time on bipap. Treat anxiety if needed. Critical Time Critical Time (minutes): 40 Level of Care: MEDICAL Anticipated discharge: Home Anticipated DC Timeframe: Other -: 1. The care of a critical patient is a dynamic process. This note is a account manager sales representative synopsis but static in nature. The timeframe for treatments given in order is not necessarily the actual time these treatments may have been done. 2. This patient requires critical care secondary to ongoing requirements for therapy not offered or safe outside the critical care environment. Transfer to a lower level of care will result in altered life or limb morbidity and mortality. 3. Multidisciplinary rounds completed. 4. ABCDE bundle addressed.
--- NOTE | 2020-06-23 18:33 | EKG REPORT ---
SEVERITY:- ABNORMAL ECG - SINUS TACHYCARDIA BIATRIAL ABNORMALITIES : Confirmed by: Stephane Vázquez MD 23-Jun-2020 18:33:02
--- NOTE | 2020-06-23 19:01 | RADIOLOGY REPORT (SQ) ---
EXAM DESCRIPTION: CTA CHEST IMAGES COMPLETED DATE/TIME: 06/23/2020 3:34 pm REASON FOR STUDY: cough/sob COMPARISON: Single-view chest same date. TECHNIQUE: CT scan of the chest performed using helical scanning technique with dynamic intravenous contrast injection. Images reviewed with lung, soft tissue and bone windows. Reconstructed coronal and sagittal MPR images reviewed. Additional 3 dimensional post-processing performed to develop Maximal Intensity Projection images (AL P). All images stored on PACS. All CT scanners at this facility use dose modulation, iterative reconstruction, and/or weight based d osing when appropriate to reduce radiation dose to as low as reasonably achievable (ALARA). [facility]: Dose Right [facility]: CareDose [facility]: Dose Right [facility]: Teradose 4D [facility]: [employer] CONTRAST TYPE AND DOSE: contrast/concentration: Isovue 350.00 mmol/ml; Total Contrast Delivered: 65. 0 ml; Total Saline Delivered: 59.0 ml Contrast bolus adequate for pulmonary arteries and aorta. RENAL FUNCTION: Creatinine 0.41 RADIATION DOSE: CT Rad equipment meets quality standard of care and radiation dose reduction techniq ues were employed. CTDIvol: 9.9 - 14.3 mGy. DLP: 609 mGy-cm. . LIMITATIONS: Mild motion artifact. FINDINGS: LUNGS AND PLEURA: Centrilobular emphysema. Mild motion artifact. Cavitary nodular opacit y anteromedial left upper lobe (series 4, image 64) measuring 1.0 x 0.9 cm. This could be due to foc al scarring with some underlying emphysematous change. A true cavitary nodule in the setting of infe ction or other pathology remains possible. No other suspicious pulmonary nodule identified or signif icant parenchymal consolidation. Biapical scarring. No pleural effusion or pneumothorax. AORTA AND GREAT VESSELS: No aneurysm. No dissection. HEART: No pericardial effusion. Coronary artery calcifications. PULMONARY ARTERIES: No filling defects within the main, right or left pulmonary arteries. No filling defects within the visualized lobar, segmental or subsegmental pulmonary arteries. Motion artifact obscures portions of the distal segmental and subsegmental branches. Right upper lobe pulmonary ernzo ry is also partially obscured due to artifact from adjacent dense intravenous contrast. HILAR AND MEDIASTINAL STRUCTURES: No identified masses or abnormal nodes. HARDWARE: None in the chest. UPPER ABDOMEN: No significant findings. Limited exam. THYROID AND OTHER SOFT TISSUES: Visualized thyroid gland is unremarkable. Coarse calcifications in t he breasts, left greater than right. 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 No destructive bone lesio ns. 3D MIPS: Confirm above findings. OTHER: No other significant finding. IMPRESSION: 1. No visualized pulmonary embolism. 2. Nonspecific cavitary nodule in the anteromedial left upper lobe measuring up to 1.0 cm. This cou ld be infectious/inflammatory in etiology. Recommend short-term follow-up CT in 6-8 weeks to assess stability/resolution and to exclude underlying pathology. 3. Emphysema. No other parenchymal consolidation. COMMENT: Quality ID # [id number]: Final reports with documentation of one or more dose reduction techniques (e.g., Automated exposure control, adjustment of the mA and/or kV according to patient size, use of iterative reconstruction technique) TECHNICAL DOCUMENTATION: JOB ID: [id number] 2010 [employer]- All Rights Reserved Reading location - IP/workstation name: [email or web address]
--- NOTE | 2020-06-23 19:34 | PDOC H&P ---
History of Present Illness Admission Date/PCP: 06/23/20 18:05 NATE CARDENAS PA-C History of Present Illness: KAIA APPLE is a 64 year old female with past medical history significant for newly diagnosed COPD in 04/2020, HTN, HLD, seizure disorder on Keppra chronically who presents to the ED with 1 day history of progressive shortness of breath/MORGAN/cough productive of thick white sputum. Patient denies fever/chills/myalgias or any contacts with individuals infected with Covid or influenza. Patient was extremely short of breath when brought in by EMS and was noted to have a pH of 7.1 and a PCO2 of 71 on admission. She was placed on a BiPAP and critical care medicine was consulted. They asked for repeat ABG after few hours of the BiPAP patient showed notable improvement on the blood gas. Rapid Covid test was negative. Patient was admitted to the hospital 04/2024 seizure presumably related to alcohol use and abuse. Patient states she has not had any alcohol since . Patient only mildly wheezing on exam after getting large doses of IV steroids, antibiotics, nebulizer treatments. Patient admitted for acute COPD exacerbation. She states she could not afford Trelegy that was prescribed her outpatient due to the co-pay being over $400. We will start her on Breo here. Past Medical History Cardiac Medical History: Reports: Hypertension Denies: Coronary Artery Disease, Myocardial Infarction, Pulmonary Embolism Pulmonary Medical History: Reports: Bronchitis, Chronic Obstructive Pulmonary Disease (COPD), Pneumonia - hospitalized approx 7 years ago Denies: Asthma, Respiratory Failure, Sleep Apnea, Tuberculosis Neurological Medical History: Denies: Seizures Renal/ Medical History: Denies: End Stage Renal Disease Malignancy Medical History: Denies: Leukemia, Lung Cancer GI Medical History: Reports: Gastroesophageal Reflux Disease - OTC Tums prn Denies: Crohn's Disease, Hiatal Hernia Musculoskeltal Medical History: Reports: Arthritis Denies: Fibromyalgia Psychiatric Medical History: Reports: Alcohol Dependency Denies: Bipolar Disorder, Depression, Post Traumatic Stress Disorder Hematology: Reports: Anemia - with only Denies: Hemophilia, Sickle Cell Disease Infectious Medical History: Denies: HIV Past Surgical History Past Surgical History: Reports: Appendectomy - at age 46 years old, Section - 1981, Orthopedic Surgery - Right hip fx nailed on 01-19-11, 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 Denies: Amputation, Cholecystectomy, Colostomy, Coronary Artery Bypass Graft, Gastric Bypass Surgery, Herniorrhaphy, Hysterectomy, Mastectomy, Pacemaker, Tonsillectomy, Tubal Ligation Social History Information Source: Patient, Emergency Med Personnel Lives with: Family Smoking Status: Former Smoker Electronic Cigarette use?: No Frequency of Alcohol Use: Heavy Hx Recreational Drug Use: No Hx Prescription Drug Abuse: No - Advance Directive Resuscitation Status: Full Code Surrogate healthcare decision maker:: Admitting diagnosis: COPD exacerbation All aspects of code status discussed with patient/POA including cardioversion, chest compressions, and intubation and the patient/POA indicated they wish to be full code MPOA is designated as: , Gadiel Time spent: Greater than 16 minutes Family History Family History: Reviewed & Not Pertinent, CAD Parental Family History Reviewed: Yes Children Family History Reviewed: Yes Sibling(s) Family History Reviewed.: Yes Medication/Allergy Home Medications: Atorvastatin Calcium [Lipitor 40 mg Tablet] 40 mg PO QHS #30 tablet 05/25/20 Fluticasone/Umeclidin/Vilanter [Trelegy 100-62.5-25 Mcg Ellipta 14 Dose/Dpi] 1 inh IH DAILY inhaler 05/25/20 Levetiracetam [Keppra 500 mg Tablet] 500 mg PO Q12 #60 tablet 05/25/20 Lisinopril [Prinivil 10 mg Tablet] 10 mg PO DAILY #30 tablet 05/25/20 Albuterol Sulfate [Ventolin Hfa 8 gm Mdi] 2 puff IH Q4HP PRN 06/23/20 Allergies/Adverse Reactions: No Known Allergies Allergy (Verified 06/23/20 11:23) Review of Systems All systems: reviewed and no additional remarkable complaints except as stated - Per HPI otherwise negative Physical Exam Vital Signs: Temp Pulse Resp BP Pulse Ox 98.1 F 20 135/69 H 100 06/23/20 11:23 06/23/20 18:01 06/23/20 18:01 06/23/20 18:01 Intake & Output 06/22/20 06/23/20 06/24/20 06:59 06:59 06:59 Intake Total 150 Balance 150 Weight 49.668 kg Exam: General appearance: PRESENT: no acute distress, thin/frail and chronically ill- appearing white female Head exam: PRESENT: atraumatic, normocephalic Eye exam: PRESENT: conjunctiva pink. ABSENT: scleral icterus Mouth exam: PRESENT: moist Respiratory exam: PRESENT: Mild wheezing bilaterally ABSENT: rales, rhonchi Cardiovascular exam: PRESENT: RRR. ABSENT: diastolic murmur, rubs, systolic murmur GI/Abdominal exam: PRESENT: normal bowel sounds, soft. ABSENT: distended, guarding, mass, organolmegaly, rebound, tenderness Neurological exam: PRESENT: alert, awake, oriented to person, oriented to place, oriented to time, oriented to situation Psychiatric exam: PRESENT: appropriate affect, normal mood Skin exam: PRESENT: dry, intact, warm Results Laboratory Results: 06/23/20 11:15 06/23/20 11:15 06/23/20 06/23/20 06/23/20 11:15 11:15 11:15 WBC 7.7 RBC 3.91 Hgb 13.1 Hct 38.1 MCV 97 MCH 33.4 MCHC 34.3 RDW 12.8 Plt Count 341 Seg Neutrophils % 37.7 L Carbonic Acid HCO3/H2CO3 Ratio ABG pH ABG pCO2 ABG pO2 ABG HCO3 ABG O2 Saturation ABG Base Excess VBG pH 7.17 L* VBG pCO2 71.0 H* VBG HCO3 25.4 VBG Base Excess -4.7 FiO2 Sodium 133.0 L Potassium 4.3 Chloride 98 Carbon Dioxide 28 Anion Gap 7 BUN 9 Creatinine 0.41 L Est GFR ( Amer) > 60 Glucose 138 H Lactic Acid Calcium 9.5 Total Bilirubin 0.4 AST 28 Alkaline Phosphatase 112 Total Protein 7.5 Albumin 4.5 06/23/20 06/23/20 06/23/20 11:15 15:20 16:39 WBC RBC Hgb Hct MCV MCH MCHC RDW Plt Count Seg Neutrophils % Carbonic Acid HCO3/H2CO3 Ratio ABG pH ABG pCO2 ABG pO2 ABG HCO3 ABG O2 Saturation ABG Base Excess VBG pH VBG pCO2 VBG HCO3 VBG Base Excess FiO2 Sodium Potassium Chloride Carbon Dioxide Anion Gap BUN Creatinine Est GFR ( Amer) Glucose Lactic Acid 0.6 L 0.9 1.4 Calcium Total Bilirubin AST Alkaline Phosphatase Total Protein Albumin 06/23/20 16:55 WBC RBC Hgb Hct MCV MCH MCHC RDW Plt Count Seg Neutrophils % Carbonic Acid 1.38 H HCO3/H2CO3 Ratio 18:1 ABG pH 7.37 ABG pCO2 45.9 H ABG pO2 120.2 H ABG HCO3 25.8 H ABG O2 Saturation 98.2 H ABG Base Excess 0 VBG pH VBG pCO2 VBG HCO3 VBG Base Excess FiO2 35% Sodium Potassium Chloride Carbon Dioxide Anion Gap BUN Creatinine Est GFR ( Amer) Glucose Lactic Acid Calcium Total Bilirubin AST Alkaline Phosphatase Total Protein Albumin 06/23/20 11:15 Troponin I 0.021 Impressions: Chest X-Ray 06/23/20 11:04 IMPRESSION: COPD. INDISTINCT DENSITY IN THE LEFT LUNG, POSSIBLE INFILTRATE. Chest/Abdomen CTA 06/23/20 17:46 IMPRESSION: 1. No visualized pulmonary embolism. 2. Nonspecific cavitary nodule in the anteromedial left upper lobe measuring up to 1.0 cm. This could be infectious/inflammatory in etiology. Recommend short- term follow-up CT in 6-8 weeks to assess stability/resolution and to exclude underlying pathology. 3. Emphysema. No other parenchymal consolidation. Assessment and Plan - Diagnosis (1) COPD exacerbation Is this a current diagnosis for this admission?: Yes Plan: -Acute COPD exacerbation -Supplemental O2 to maintain sat of 89-94% -duonebs -steroids -abx indicated only if concomitant bacterial pneumonia is also suspected -bronchial hygiene -consider pulmonary rehab referral at [facility] -no smoking Weaned off BiPAP on admission Needs follow-up with pulmonology outpatient (2) Acute on chronic respiratory failure with hypoxia and hypercapnia Is this a current diagnosis for this admission?: Yes Plan: Due to COPD exacerbation as above Treat underlying causes as above (3) Seizure disorder Is this a current diagnosis for this admission?: Yes Plan: Takes Keppra 500 mg daily, restarted Has follow-up appointment with neurology outpatient at [facility] (4) HLD (hyperlipidemia) Qualifiers: Hyperlipidemia type: unspecified Qualified Code(s): E78.5 - Hyperlipidemia, unspecified Is this a current diagnosis for this admission?: Yes Plan: Continue statin (5) Abnormal finding on chest xray Is this a current diagnosis for this admission?: Yes Plan: Unclear opacity on chest x-ray Given extensive smoking history, concern for possible malignancy CT chest with contrast (6) Hypertension Qualifiers: Hypertension type: essential hypertension Qualified Code(s): I10 - Essential (primary) hypertension Is this a current diagnosis for this admission?: Yes Plan: Home medications - Time Time Spent with patient: 35 or more minutes Medications reviewed and adjusted accordingly: Yes Anticipated Discharge Disposition: Home, Self Care Anticipated Discharge Timeframe: within 48 hours - Inpatient Certification Based on my medical assessment, after consideration of the patient's comorbidities, presenting symptoms, or acuity I expect that the services needed warrant INPATIENT care.: Yes I certify that my determination is in accordance with my understanding of Medicare's requirements for reasonable and necessary INPATIENT services [42 CFR 412.3e].: Yes Medical Necessity: Significant Comorbidiites Make Outpatient Treatment Too Risky, Need Close Monitoring Due to Risk of Patient Decompensation, Risk of Complication if Not Cared For in Hospital, Risk of Diagnosis Which Will Require Inpatient Eval/Care/Monitoring
[2020-06-23] MEDS: LEVETIRACETAM 500 MG TABLET PO SCH (21:31)
[2020-06-23] MEDS: METHYLPREDNISOLONE INJ 40 MG/1 ML SDV IV SCH (21:31)
[2020-06-23] MEDS: FLUTICASONE/VILANTEROL 100-25 MCG/DOSE IH SCH (21:32)
[2020-06-23] MEDS ORDERED: ATORVASTATIN CALCIUM 40 MG TABLET PO SCH (22:00)
[2020-06-23] MEDS: IPRATROPIUM/ALBUTEROL 0.5-2.5 MG/3 ML AMPUL NEB SCH (22:02)
[2020-06-24 06:49] LABS: ABSOLUTE LYMPHOCYTES (AUTO) 0.7 10^3/uL (0.5-4.7); ABSOLUTE MONOCYTES (AUTO) 0.1 10^3/uL (0.1-1.4); ABSOLUTE NEUT (AUTO) 4.5 10^3/uL (1.7-8.2); BASOPHILS % (AUTO) 0.3 % (0-2); HEMATOCRIT 37.1 % (36.0-47.0); HEMOGLOBIN 12.5 g/dL (12.0-15.5); LYMPHOCYTES % (AUTO) 13.3 % (13-45); MEAN CORPUSCULAR HEMOGLOBIN 32.5 pg (27.0-33.4); MEAN CORPUSCULAR HGB CONC 33.7 g/dL (32.0-36.0); MEAN CORPUSCULAR VOLUME 96 fl (80-97); MONOCYTES % (AUTO) 2.1 % (3-13); PLATELET COUNT 296 10^3/uL (150-450); RED BLOOD COUNT 3.85 10^6/uL (3.72-5.28); RED CELL DISTRIBUTION WIDTH 12.4 % (11.5-14.0); SEGMENTED NEUTROPHILS % (AUTO) 84.3 % (42-78); TOTAL CELLS COUNTED % (AUTO) 100 %; WHITE BLOOD COUNT 5.3 10^3/uL (4.0-10.5)
[2020-06-24 07:06] LABS: ANION GAP 9 (5-19); BLOOD UREA NITROGEN 9 mg/dL (7-20); CALCIUM 9.8 mg/dL (8.4-10.2); CARBON DIOXIDE 25 mmol/L (22-30); CHLORIDE 101 mmol/L (98-107); GLUCOSE 140 mg/dL (75-110); PHOSPHORUS 3.8 mg/dL (2.5-4.5); POTASSIUM 4.6 mmol/L (3.6-5.0)
[2020-06-24] MEDS: IPRATROPIUM/ALBUTEROL 0.5-2.5 MG/3 ML AMPUL NEB SCH ×2 (08:41→11:34)
[2020-06-24] MEDS: METHYLPREDNISOLONE INJ 40 MG/1 ML SDV IV SCH (09:26)
[2020-06-24] MEDS: LEVETIRACETAM 500 MG TABLET PO SCH (09:26)
[2020-06-24] MEDS ORDERED: LISINOPRIL 10 MG TABLET PO SCH (10:00)
[2020-06-24] MEDS ORDERED: DOCUSATE SODIUM 100 MG CAPSULE PO SCH (10:00)
[2020-06-24] MEDS ORDERED: ENOXAPARIN SODIUM INJ 30 MG/0.3 ML DISP.SYRIN SUBCUT SCH (10:00)
[2020-06-24] MEDS: FLUTICASONE/VILANTEROL 100-25 MCG/DOSE IH SCH (12:02)
--- NOTE | 2020-06-24 13:31 | PDOC DISCHARGE SUMMARY ---
Impression - Admit/DC Date/PCP Admission Date/Primary Care Provider: 06/23/20 18:05 NATE CARDENAS PA-C Discharge Date: 06/24/20 - Discharge Diagnosis (1) COPD exacerbation Is this a current diagnosis for this admission?: Yes (2) Acute on chronic respiratory failure with hypoxia and hypercapnia Is this a current diagnosis for this admission?: Yes (3) Seizure disorder Is this a current diagnosis for this admission?: Yes (4) HLD (hyperlipidemia) Is this a current diagnosis for this admission?: Yes (5) Abnormal finding on chest xray Is this a current diagnosis for this admission?: Yes (6) Hypertension Is this a current diagnosis for this admission?: Yes - Assessment Summary: KAIA APPLE is a 64 year old female with past medical history significant for newly diagnosed COPD in 04/2020, HTN, HLD, seizure disorder on Keppra chronically who presents to the ED with 1 day history of progressive shortness of breath/MORGAN/cough productive of thick white sputum. Patient denies fever/chills/myalgias or any contacts with individuals infected with Covid or influenza. Patient was extremely short of breath when brought in by EMS and was noted to have a pH of 7.1 and a PCO2 of 71 on admission. She was placed on a BiPAP and critical care medicine was consulted. They asked for repeat ABG after few hours of the BiPAP patient showed notable improvement on the blood gas. Rapid Covid test was negative. Patient was admitted to the hospital 04/2024 seizure presumably related to alcohol use and abuse. Patient states she has not had any alcohol since . Patient only mildly wheezing on exam after getting large doses of IV steroids, antibiotics, nebulizer treatments. Patient admitted for acute COPD exacerbation. She states she could not afford Trelegy that was prescribed her outpatient due to the co-pay being over $400. We will start her on Breo here. (1) COPD exacerbationresolved Is this a current diagnosis for this admission?: Yes Plan: -Acute COPD exacerbation -Supplemental O2 to maintain sat of 89-94% -duonebs -steroids -abx indicated only if concomitant bacterial pneumonia is also suspected -bronchial hygiene -consider pulmonary rehab referral at DC -no smoking Weaned off BiPAP on admission Needs follow-up with pulmonology outpatient At discharge, start prednisone and continue for additional 4 days for a total of 5 days steroid therapy from admission Switched from Trelegy which patient cannot afford to Advair which is much more affordable; if this is inadequate, can add Spiriva at a later date as well, defer to PCP and pulmonology Follow-up with pulmonology outpatient (2) Acute on chronic respiratory failure with hypoxia and hypercapnia Is this a current diagnosis for this admission?: Yes Plan: Due to COPD exacerbation as above Treat underlying causes as above (3) Seizure disorder Is this a current diagnosis for this admission?: Yes Plan: Takes Keppra 500 mg daily, restarted Has follow-up appointment with neurology outpatient at [facility] (4) HLD (hyperlipidemia) Qualifiers: Hyperlipidemia type: unspecified Qualified Code(s): E78.5 - Hyperlipidemia, unspecified Is this a current diagnosis for this admission?: Yes Plan: Continue statin (5) Abnormal finding on chest xray Is this a current diagnosis for this admission?: Yes Plan: Unclear opacity on chest x-ray Given extensive smoking history, concern for possible malignancy CT chest with contrast (6) Hypertension Qualifiers: Hypertension type: essential hypertension Qualified Code(s): I10 - Essential (primary) hypertension Is this a current diagnosis for this admission?: Yes Plan: Home medications - Additional Information Resuscitation Status: Full Code Discharge Diet: As Tolerated, Regular Discharge Activity: Activity As Tolerated, Balance Activity w/Rest Referrals: NATE CARDENAS PA-C [Primary Care Provider] - 06/30/20 11:15 am Prescriptions: Fluticasone/Salmeterol [Advair 100-50 Diskus 14 Dose/Diskus] 1 inh IH Q12H #1 inhaler Prednisone [Deltasone 20 mg Tablet] 40 mg PO DAILY 4 Days #8 tablet Home Medications: Atorvastatin Calcium [Lipitor 40 mg Tablet] 40 mg PO QHS #30 tablet 05/25/20 Levetiracetam [Keppra 500 mg Tablet] 500 mg PO Q12 #60 tablet 05/25/20 Lisinopril [Prinivil 10 mg Tablet] 10 mg PO DAILY #30 tablet 05/25/20 Albuterol Sulfate [Ventolin Hfa 8 gm Mdi] 2 puff IH Q4HP PRN 06/23/20 Fluticasone/Salmeterol [Advair 100-50 Diskus 14 Dose/Diskus] 1 inh IH Q12H #1 inhaler 06/24/20 Prednisone [Deltasone 20 mg Tablet] 40 mg PO DAILY 4 Days #8 tablet 06/24/20 History of Present Illiness History of Present Illness: KAIA APPLE is a 64 year old female with past medical history significant for newly diagnosed COPD in 04/2020, HTN, HLD, seizure disorder on Keppra chronically who presents to the ED with 1 day history of progressive shortness of breath/MORGAN/cough productive of thick white sputum. Patient denies fever/chills/myalgias or any contacts with individuals infected with Covid or influenza. Patient was extremely short of breath when brought in by EMS and was noted to have a pH of 7.1 and a PCO2 of 71 on admission. She was placed on a BiPAP and critical care medicine was consulted. They asked for repeat ABG after few hours of the BiPAP patient showed notable improvement on the blood gas. Rapid Covid test was negative. Patient was admitted to the hospital 04/2024 seizure presumably related to alcohol use and abuse. Patient states she has not had any alcohol since . Patient only mildly wheezing on exam after getting large doses of IV steroids, antibiotics, nebulizer treatments. Patient admitted for acute COPD exacerbation. She states she could not afford Trelegy that was prescribed her outpatient due to the co-pay being over $400. We will start her on Breo here. Physical Exam Vital Signs: Temp Pulse Resp BP Pulse Ox 97.8 F 81 18 127/59 H 96 06/24/20 10:00 06/24/20 11:36 06/24/20 11:36 06/24/20 07:57 06/24/20 11:36 Intake & Output 06/23/20 06/24/20 06/25/20 06:59 06:59 06:59 Intake Total 670 Balance 670 Weight 49.7 kg Exam: General appearance: PRESENT: no acute distress, thin/frail and chronically ill- appearing white female, states she feels essentially back to baseline Head exam: PRESENT: atraumatic, normocephalic Eye exam: PRESENT: conjunctiva pink. ABSENT: scleral icterus Mouth exam: PRESENT: moist Respiratory exam: PRESENT: clear to auscultation nisa. ABSENT: rales, rhonchi, wheezes Cardiovascular exam: PRESENT: RRR. ABSENT: diastolic murmur, rubs, systolic murmur GI/Abdominal exam: PRESENT: normal bowel sounds, soft. ABSENT: distended, guarding, mass, organolmegaly, rebound, tenderness Neurological exam: PRESENT: alert, awake, oriented to person, oriented to place, oriented to time, oriented to situation Psychiatric exam: PRESENT: appropriate affect, normal mood Skin exam: PRESENT: dry, intact, warm Results Laboratory Results: WBC 5.3 10^3/uL (4.0-10.5) 06/24/20 05:21 RBC 3.85 10^6/uL (3.72-5.28) 06/24/20 05:21 Hgb 12.5 g/dL (12.0-15.5) 06/24/20 05:21 Hct 37.1 % (36.0-47.0) 06/24/20 05:21 MCV 96 fl (80-97) 06/24/20 05:21 MCH 32.5 pg (27.0-33.4) 06/24/20 05:21 MCHC 33.7 g/dL (32.0-36.0) 06/24/20 05:21 RDW 12.4 % (11.5-14.0) 06/24/20 05:21 Plt Count 296 10^3/uL (150-450) 06/24/20 05:21 Lymph % (Auto) 13.3 % (13-45) 06/24/20 05:21 Pope % (Auto) 2.1 % (3-13) L 06/24/20 05:21 Eos % (Auto) 0.0 % (0-6) 06/24/20 05:21 Baso % (Auto) 0.3 % (0-2) 06/24/20 05:21 Absolute Neuts (auto) 4.5 10^3/uL (1.7-8.2) 06/24/20 05:21 Absolute Lymphs (auto) 0.7 10^3/uL (0.5-4.7) 06/24/20 05:21 Absolute Monos (auto) 0.1 10^3/uL (0.1-1.4) 06/24/20 05:21 Absolute Eos (auto) 0.0 10^3/uL (0.0-0.6) 06/24/20 05:21 Absolute Basos (auto) 0.0 10^3/uL (0.0-0.2) 06/24/20 05:21 Seg Neutrophils % 84.3 % (42-78) H 06/24/20 05:21 PT 12.5 SEC (11.4-15.4) 06/23/20 11:15 INR 0.92 06/23/20 11:15 Carbonic Acid 1.38 mmol/L (1.05-1.35) H 06/23/20 16:55 HCO3/H2CO3 Ratio 18:1 06/23/20 16:55 ABG pH 7.37 (7.35-7.45) 06/23/20 16:55 ABG pCO2 45.9 mmHg (35-45) H 06/23/20 16:55 ABG pO2 120.2 mmHg (80-100) H 06/23/20 16:55 ABG HCO3 25.8 mmol/L (20-24) H 06/23/20 16:55 ABG Total CO2 27.2 mmol/L (21-25) H 06/23/20 16:55 ABG O2 Saturation 98.2 % (94-98) H 06/23/20 16:55 ABG Base Excess 0 mmol/L 06/23/20 16:55 VBG pH 7.17 (7.30-7.42) L* 06/23/20 11:15 VBG pCO2 71.0 mmHg (35-63) H* 06/23/20 11:15 VBG HCO3 25.4 mmol/L (20-32) 06/23/20 11:15 VBG Base Excess -4.7 mmol/L 06/23/20 11:15 FiO2 35% 06/23/20 16:55 Sodium 135.4 mmol/L (137-145) L 06/24/20 05:21 Potassium 4.6 mmol/L (3.6-5.0) 06/24/20 05:21 Chloride 101 mmol/L (98-107) 06/24/20 05:21 Carbon Dioxide 25 mmol/L (22-30) 06/24/20 05:21 Anion Gap 9 (5-19) 06/24/20 05:21 BUN 9 mg/dL (7-20) 06/24/20 05:21 Creatinine 0.36 mg/dL (0.52-1.25) L 06/24/20 05:21 Est GFR ( Amer) > 60 (>60) 06/24/20 05:21 Est GFR (MDRD) Non-Af > 60 (>60) 06/24/20 05:21 Glucose 140 mg/dL (75-110) H 06/24/20 05:21 Lactic Acid 1.4 mmol/L (0.7-2.1) 06/23/20 16:39 Calcium 9.8 mg/dL (8.4-10.2) 06/24/20 05:21 Phosphorus 3.8 mg/dL (2.5-4.5) 06/24/20 05:21 Magnesium 1.7 mg/dL (1.6-2.3) 06/24/20 05:21 Total Bilirubin 0.4 mg/dL (0.2-1.3) 06/23/20 11:15 Direct Bilirubin 0.1 mg/dL (0.0-0.4) 06/23/20 11:15 Neonat Total Bilirubin Not Reportable 06/23/20 11:15 Neonat Direct Bilirubin Not Reportable 06/23/20 11:15 Neonat Indirect Bili Not Reportable 06/23/20 11:15 AST 28 U/L (14-36) 06/23/20 11:15 ALT 17 U/L (<35) 06/23/20 11:15 Alkaline Phosphatase 112 U/L (38-126) 06/23/20 11:15 Troponin I 0.021 ng/mL 06/23/20 11:15 Total Protein 7.5 g/dL (6.3-8.2) 06/23/20 11:15 Albumin 4.5 g/dL (3.5-5.0) 06/23/20 11:15 Serum Alcohol < 10 mg/dL (NONE DETECTED) 06/23/20 11:15 Influenza A (RT-PCR) NEGATIVE (NEGATIVE) 06/23/20 14:15 Influenza B (RT-PCR) NEGATIVE (NEGATIVE) 06/23/20 14:15 RSV (RT-PCR) NEGATIVE (NEGATIVE) 06/23/20 14:15 SARS-CoV-2 Rap RNA(RT-PCR) NEGATIVE (NEGATIVE) 06/23/20 14:15 06/23/20 11:15 Troponin I 0.021 Impressions: Chest X-Ray 06/23/20 11:04 IMPRESSION: COPD. INDISTINCT DENSITY IN THE LEFT LUNG, POSSIBLE INFILTRATE. Chest/Abdomen CTA 06/23/20 17:46 IMPRESSION: 1. No visualized pulmonary embolism. 2. Nonspecific cavitary nodule in the anteromedial left upper lobe measuring up to 1.0 cm. This could be infectious/inflammatory in etiology. Recommend short- term follow-up CT in 6-8 weeks to assess stability/resolution and to exclude underlying pathology. 3. Emphysema. No other parenchymal consolidation. Plan Plan of Treatment: Follow-up with PCP Follow-up with pulmonology Prednisone outpatient to complete total 5 days of steroid burst therapy Changed Trelegy to Advair for affordability Time Spent: Greater than 30 Minutes Stroke Is this a Stroke Patient?: No Acute Heart Failure Is this a Heart Failure Patient?: No
[2020-06-24 14:15] VITALS: BP 147/60
== END 2020-06-24 14:35 | disposition home or self-care (01) ==
LOC: ER 10:49 → INTOOBSV 18:05 → EH 18:05 → 3W 19:13
PROVIDERS: ADMIT Internal Medicine; ATTEND Internal Medicine
DX: J44.1 Chronic obstructive pulmonary disease with (acute) exacerbation (principal); J96.22 Acute and chronic respiratory failure with hypercapnia; J96.21 Acute and chronic respiratory failure with hypoxia; G40.909 Epilepsy, unspecified, not intractable, without status epilepticus; E78.5 Hyperlipidemia, unspecified; R91.8 Other nonspecific abnormal finding of lung field; I10 Essential (primary) hypertension; Z79.899 Other long term (current) drug therapy; Z20.822 Contact with and (suspected) exposure to COVID-19; K21.9 Gastro-esophageal reflux disease without esophagitis; Z87.891 Personal history of nicotine dependence; Z82.49 Family history of ischemic heart disease and other diseases of the circulatory system; F41.9 Anxiety disorder, unspecified; Z63.4 Disappearance and death of family member; Z79.82 Long term (current) use of aspirin
CPT/HCPCS: 93005; 94640 ×3; 99285; 96375; 96365; 96366; 96367; 36415 ×2; 87040; 80307; 82803 ×2; 83605; 83735; 84100; 85025 ×2; 85610; 0241U; 80048; 80053; 84484; 71045; 71275; 93010; J2920 ×2; J2930; J1650; J1956; J2543; J3490; C9803